=== PATIENT | male | born 1970 | race Caucasian/White ===

== ENCOUNTER 2024-06-17 12:35 | Outpatient (OUT) | payer OTHER, SELFPAY ==
--- NOTE | 2024-06-17 12:47 | US_ITS ---
The [address] [address] Patient Name: VIOLETTA MURRAY MRN: [id number] date: 1970 Sex: M Assigned Patient Location: US Current Patient Location: US Accession/Order Number: [id number] Exam Date: 06/17/2024 13:09 Report Date: 06/17/2024 15:23 At the request of: ISIDRO REINA Procedure: US venous doppler LE LT CLINICAL DATA: Leg swelling. PROCEDURE: Left lower extremity venous duplex ultrasound. TECHNIQUE: Tejada-scale, color flow, and waveform spectral analysis was performed of the left lower extremity. FINDINGS: The left common femoral, profunda femoral, femoral, and popliteal veins were compressible. The saphenous vein was compressible. No venous thrombosis was seen. The veins fill with color Doppler. Augmentation was normal. There was limited visualization of the tibial veins secondary to bandage. US/US venous doppler LE LT IMPRESSION: 1. No acute lower extremity deep venous thrombosis. 2. No superficial venous thrombosis. Electronically authenticated by: Giuliano PEACOCK Date: 06/17/2024 15:23
== END 2024-06-17 12:36 | disposition home or self-care (01) ==
LOC: US 12:41
PROVIDERS: PCP Internal Medicine; Visit Provider Internal Medicine
DX: I87.2 Venous insufficiency (chronic) (peripheral) (principal); M79.89 Other specified soft tissue disorders
CPT/HCPCS: 93971

== ENCOUNTER 2024-06-19 15:00 | Outpatient (OUT) | payer OTHER, SELFPAY | END 2024-06-19 15:01 | disposition home or self-care (01) | LOC: WC 15:00 | PROVIDERS: PCP Internal Medicine; Visit Provider Physician Assistant | DX: I87.332 Chronic venous hypertension (idiopathic) with ulcer and inflammation of left lower extremity (principal); L97.821 Non-pressure chronic ulcer of other part of left lower leg limited to breakdown of skin | CPT/HCPCS: G0463 ==

== ENCOUNTER 2024-07-10 11:52 | Outpatient (OUT) | payer OTHER, SELFPAY | END 2024-07-10 11:53 | disposition home or self-care (01) | LOC: WC 11:52 | PROVIDERS: PCP Internal Medicine; Visit Provider Physician Assistant | DX: I87.332 Chronic venous hypertension (idiopathic) with ulcer and inflammation of left lower extremity (principal); L97.821 Non-pressure chronic ulcer of other part of left lower leg limited to breakdown of skin; R60.1 Generalized edema | CPT/HCPCS: G0463 ==

== ENCOUNTER 2024-07-12 11:40 | Outpatient (OUT) | payer OTHER, SELFPAY | END 2024-07-12 11:41 | disposition home or self-care (01) | LOC: WC 11:40 | PROVIDERS: PCP Internal Medicine; Visit Provider Podiatrist Foot & Ankle Surgery | DX: I87.332 Chronic venous hypertension (idiopathic) with ulcer and inflammation of left lower extremity (principal); L97.821 Non-pressure chronic ulcer of other part of left lower leg limited to breakdown of skin | CPT/HCPCS: 29580 ==

== ENCOUNTER 2024-07-16 10:28 | Outpatient (OUT) | payer OTHER, SELFPAY | END 2024-07-16 10:29 | disposition home or self-care (01) | LOC: WC 10:28 | PROVIDERS: PCP Internal Medicine; Visit Provider Physician Assistant | DX: I87.332 Chronic venous hypertension (idiopathic) with ulcer and inflammation of left lower extremity (principal); L97.821 Non-pressure chronic ulcer of other part of left lower leg limited to breakdown of skin | CPT/HCPCS: 29580 ==

== ENCOUNTER 2024-07-19 08:48 | Outpatient (OUT) | payer OTHER, SELFPAY ==
--- OUTSIDE RECORDS SUMMARY | 2024-07-19 08:53 | XMS_ITS | CCD ---
Author Organization [facility] Care Team Providers Care Slab Conditioner Supervisor Name Role Phone ANSELMO, DR FELIX Primary Care Unavailable ANSELMO, DR FELIX Admitting Unavailable ANSELMO, DR FELIX Attending Unavailable ANSELMO, DR FELIX Consulting Unavailable ANSELMO, DR FELIX Admitting Unavailable ANSELMO, DR FELIX Attending Unavailable ANSELMO, DR FELIX Consulting Unavailable ANSELMO, DR FELIX Primary Care Unavailable Anselmo, Deo Unavailable Allergies Allergy Classification Reported Allergen(s) Allergy Type Date of Onset Reaction(s) Facility Cranberry preparation (1 source) Cranberry preparation Drug Allergy 4 Unknown Reaction [facility] Shellfish (1 source) Shellfish Food Allergy 4 Unknown Reaction [facility] (1 source) Shellfish Drug allergy (disorder) 7 [facility] (2 sources) patient allergy list reviewed by nurse or physicia Propensity to adverse reactions 7 Comment:Done [facility] Other (1 source) Cranberry preparation Drug Allergy 4 Unknown Reaction [facility] (1 source) Shellfish Allergy to substance 4 Unknown Reaction [facility] Medications Current Medications Medication Drug Class(es) Dates Sig (Normalized) Sig (Original) ARIPiprazole 10 mg oral tablet (11 sources) Atypical Antipsychotic Start: 12-11-2023 take 1 tablet by mouth once daily Aripiprazole 10 mg tablet Active 0 .ROUTE .COMPLEX December 11, 2023 4:58pm take 1 tablet by mouth once daily Start: 03-25-2019 End: 12-11-2023 take 1 tablet by mouth at bedtime Aripiprazole 5 mg tablet Discontinued 5 MG PO Bedtime March 24, 2019 11:00pm December 11, 2023 4:58pm ARIPiprazole 10 MG take 1 tablet by mouth once daily Orally Once a day Active lisinopril 20 mg oral tablet (12 sources) Angiotensin Converting Enzyme Inhibitor Start: 04-24-2024 take 1 tablet by mouth once daily Lisinopril 20 mg tablet Active 0 .ROUTE .COMPLEX April 24, 2024 7:36am TAKE 1 TABLET BY MOUTH ONCE A DAY Start: 02-14-2024 End: 04-24-2024 take 1 tablet by mouth once daily Lisinopril 20 mg tablet Discontinued 20 MG PO Daily February 13, 2024 11:00pm April 24, 2024 7:36am Start: 06-25-2017 End: 03-25-2019 take 1 tablet by mouth once daily Lisinopril 10 mg tablet Discontinued 10 MG PO Daily June 25, 2017 12:00am March 25, 2019 12:51pm take 1 tablet by jeferson th every twenty-four hours Lisinopril 20 MG 1 tablet Orally Once a day Active pantoprazole 40 mg delayed release oral tablet (10 sources) Proton Pump Inhibitor Start: 02-29-2024 take 1 tablet by mouth once daily Pantoprazole 40 mg tablet,delayed release (DR/EC) Active 0 .ROUTE .COMPLEX February 29, 2024 10:37am TAKE 1 TABLET BY MOUTH ONCE DAILY Start: 06-19-2017 End: 02-29-2024 take 1 tablet by mouth once daily Pantoprazole 40 tablet,delayed release (DR/EC) Discontinued 40 MG PO Daily June 19, 2017 12:00am February 29, 2024 10:37am sertraline 100 mg oral tablet (14 sources) Serotonin Reuptake Inhibitor Start: 02-29-2024 Sertraline 100 mg tablet Active 0 .ROUTE .COMPLEX February 29, 2024 10:37am TAKE 1 AND 1/2 TABLETS BY MOUTH AT BEDTIME Start: 08-29-2022 Sertraline HCl 100 MG 1 abd 1/2 tablets Orally at bedtime Aug, Active Start: 03-25-2019 End: 03-25-2019 Sertraline 25 mg tablet Disc ontinued 150 MG PO Bedtime March 25, 2019 7:38am March 25, 2019 12:50pm Start: 03-25-2019 End: 03-25-2019 take 150 mg by mouth at bedtime Sertraline Discontinue d 150 MG PO Bedtime March 25, 2019 8:38am March 25, 2019 1:50pm Start: 03-25-2019 End: 02-29-2024 Sertraline 100 mg tablet Discontinued 150 MG PO Bedtime March 24, 2019 11:00pm February 29, 2024 10:37am Start: 03-25-2019 take 150 mg by mouth at bedtim e Sertraline Active 150 MG PO Bedtime March 25, 2019 12:00am Start: 06-27-2017 End: 03-25-2019 take 1 tablet by mouth at bedtime Sertraline 25 mg Tablet Discontinued 25 MG PO Bedtime June 27, 2017 12:00am March 25, 2019 7:38am take 1 tablet by jeferson th at bedtime Sertraline HCl 100 MG 1 1/2 tablets Orally at bedtime Active torsemide 10 mg oral tablet (3 sources) Loop Diuretic Start: 02-14-2024 End: 06-17-2024 take 1-2 tablets by mouth once daily Torsemide 10 mg tablet Active 0 PO Daily 60 June 17, 2024 9:56am 1-2 tablets orally daily; Vitamin B Complex (1 source) Start: 03-27-2019 take 1 tablet by mouth once daily Vitamin B Complex Active 1 TAB PO Daily March 27, 2019 12:00am Vitamin B Complex tablet (1 source) Start: 03-27-2019 take 1 tablet by mouth once daily Vitamin B Complex tablet Active 1 TAB PO Daily March 26, 2019 11:00pm Completed/Discontinued Medications Medication Drug Class(es) Dates Sig (Normalized) Sig (Original) ALPRAZolam 0.5 mg oral tablet (2 sources) Benzodiazepine Start: 7 End: 9 take 1 tablet by mouth three times daily as needed for anxiety Alprazolam (Xanax) 0.5 mg tablet Discontinued 0.5 MG PO Three times daily as needed for anxiety June 25, 2017 11:04am March 25, 2019 7:36am amLODIPine 2.5 mg oral tablet (2 sources) Dihydropyridine Calcium Channel Sari Start: 9 End: 4 take 1 tablet by mouth once daily Amlodipine 2.5 mg tablet Discontinued 2.5 MG PO Daily March 26, 2019 11:00pm February 14, 2024 8:17am benazepril hydrochloride 20 mg oral tablet (2 sources) Angiotensin Converting Enzyme Inhibitor Start: 7 End: 7 Benazepril 20 tablet Discontinued TABLET June 19, 2017 12:00am June 25, 2017 11:00am chlordiazePOXIDE hydrochloride 10 mg oral capsule (2 sources) Benzodiazepine Start: 7 End: 9 take 1 capsule by mouth three times daily Chlordiazepoxide Hcl 10 mg Capsule Discontinued 10 MG PO Three times daily June 25, 2017 12:00am March 25, 2019 7:37am Tapered down slowly while patient on 1 S. and eventually discontinue 24 hr metoprolol succinate 25 mg extended release oral tablet (2 sources) beta-Adrenergic Sari Start: 7 End: 9 Metoprolol Succinate 25 mg Tablet Extended Release 24 Hr Discontinued 50 MG PO Daily June 25, 2017 12:00am March 25, 2019 7:38am Start: 06-25-2017 End: 03-25-2019 take 50 mg by mouth once daily Metoprolol Succinate Di scontinued 50 MG PO Daily June 25, 2017 1:00am March 25, 2019 8:38am Problems Active Problems Problem Classification Problem Date Documented Da te Episodic/Chronic Alcohol-related disorders (20 sources) Alcohol dependence; Translations: [Alcohol dependence, uncomplicated] Onset: 5 Resolved: 1 Chronic Coagulation and hemorrhagic disorders (4 sources) Thrombocytopenic disorder; Translations: [Thrombocytopenia, unspecified] 08-23-2023 Chronic Deficiency and other anemia (5 sources) Anemia due to chronic blood loss; Translations: [Iron deficiency anemia secondary to blood loss (chronic)] Chronic Deficiency and other anemia (5 sources) Anemia, unspecified; Translations: [ANEMIA UNSPECIFIED] Onset: 2 Episodic Deficiency and other anemia (4 sources) Anemia; Translations: [Anemia, unspecified] Episodic Diabetes mellitus without complication (3 sources) Diabetes mellitus without complication; Translations: [Type 2 diabetes mellitus without complications] Chronic Diabetes mellitus without complication (11 sources) Hyperglycemia; Translations: [Hyperglycemia, unspecified] Episodic Disorders of lipid metabolism (3 sources) Hypercholesterolemia; Translations: [Pure hypercholesterolemia, unspecified] 02-11-2024 Chronic Epilepsy; convulsions (3 sources) Generalized convulsive epilepsy; 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] Onset: 5 02-11-2024 Chronic Epilepsy; convulsions (1 source) Epilepsy; convulsions; 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] Onset: 5 Esophageal disorders (5 sources) Gastro-esophageal reflux disease with esophagitis; Translations: [Gastroesophageal reflux disease with esophagitis without hemorrhage] 02-11-2024 Chronic Essential hypertension (17 sources) Essential hypertension; Translations: [Essential (primary) hypertension] Chronic Fluid and electrolyte disorders (5 sources) Hyponatremia; Translations: [Hypo-osmolality and hyponatremia] Episodic Miscellaneous mental health disorders (2 sources) Somatoform disorder; 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] Onset: 6 Chronic Mood disorders (19 sources) Recurrent major depression in full remission; Translations: [Major depressive disorder, recurrent, in full remission] Onset: 7 Chronic Mood disorders (1 source) Mood disorders; Translations: [Major depressive disorder, recurrent episode, moderate] Onset: 7 Other connective tissue disease (1 source) Swelling of left lower limb; Translations: [Other specified soft tissue disorders] 06-17-2024 Episodic Other diseases of veins and lymphatics (6 sources) Postthrombotic syndrome; 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] Onset: 7 02-14-2024 Chronic Other diseases of veins and lymphatics (1 source) Lymphedema due to venous disease; Translations: [Lymphedema, not elsewhere classified] 06-14-2024 Chronic Other diseases of veins and lymphatics (1 source) Lymphedema, not elsewhere classified; Translations: [Other lymphedema] 06-17-2024 Chronic Other diseases of veins and lymphatics (1 source) Postthrombotic syndrome without complications of unspecified extremity; Translations: [Postphlebetic syndrome without complications] 06-17-2024 Chronic Other diseases of veins and lymphatics (11 sources) Peripheral venous insufficiency; Translations: [Venous insufficiency (chronic) (peripheral)] Onset: 5 Episodic Other diseases of veins and lymphatics (4 sources) Venous insufficiency (chronic) (peripheral); Translations: [Venous (peripheral) insufficiency, unspecified] Episodic Other diseases of veins and lymphatics (2 sources) Venous insufficiency of leg; Translations: [Venous insufficiency (chronic) (peripheral)] 02-14-2024 Episodic Other gastrointestinal disorders (2 sources) Irritable bowel syndrome; Translations: [Irritable bowel syndrome without diarrhea] Chronic Other nutritional; endocrine; and metabolic disorders (7 sources) Obese class I; Translations: [Obesity, unspecified] Chronic Other nutritional; endocrine; and metabolic disorders (1 source) Obesity, unspecified Chronic Other nutritional; endocrine; and metabolic disorders (2 sources) Simple obesity ; Translations: [Other obesity due to excess calories] Chronic Other nutritional; endocrine; and metabolic disorders (2 sources) Obesity; Translations: [Obesity, unspecified] Chronic Other nutritional; endocrine; and metabolic disorders (2 sources) Hypomagnesemia; Translations: [Hypomagnesemia] Onset: 9 Chronic Other nutritional; endocrine; and metabolic disorders (1 source) Overweight Episodic Other screening for suspected conditions (not mental disorders or infectious disease) (8 sources) Prostate specific antigen measurement; Translations: [Encounter for screening for malignant neoplasm of prostate] Episodic Phlebitis; thrombophlebitis and thromboembolism (16 sources) H/O: Deep vein thrombosis; Translations: [Personal history of other venous thrombosis and embolism] Onset: 5 Episodic Residual codes; unclassified (3 sources) Personal history of other specified conditions; Translations: [History of seizure due to alcohol withdrawal] 02-11-2024 Episodic Spondylosis; intervertebral disc disorders; other back problems (6 sources) Cervical spondylosis without myelopathy; Translations: [Other spondylosis with radiculopathy, cervical region] Onset: 7 Chronic Suicide and intentional self-inflicted injury (2 sources) Suicidal thoughts; Translations: [Suicidal ideations] 02-11-2024 Episodic Past or Other Problems Problem Classification Problem Date Documented Da te Episodic/Chronic Acute bronchitis (2 sources) Acute bronchitis; Translations: [Acute bronchitis, unspecified] Onset: 12-17-2015 Episodic Bacterial infection; unspecified site (2 sources) Bacterial infectious disease; Translations: [Bacterial infection, unspecified, in conditions classified elsewhere and of unspecified site] Onset: 12-17-2015 Episodic Epilepsy; convulsions (2 sources) Seizure; Translations: [Other convulsions] Onset: 10-11-2018 Episodic Esophageal disorders (10 sources) Esophageal disorders; Translations: [Gastroesophageal reflux disease with esophagitis without hemorrhage] Gastritis and duodenitis (2 sources) Acute gastritis; Translations: [Acute gastritis without mention of hemorrhage] Onset: 09-02-2016 Episodic Intestinal infection (2 sources) Viral enteritis; Translations: [Intestinal infection due to other organism, NEC] Onset: 02-26-2016 Episodic Intracranial injury (2 sources) Cortex contusion without open intracranial wound AND with concussion; Translations: [Cortex (cerebral) contusion without mention of open intracranial wound, unspecified concussion] Onset: 03-31-2015 Episodic Malaise and fatigue (2 sources) Fatigue; Translations: [Other fatigue] Resolved: 04-05-2021 Episodic Other connective tissue disease (2 sources) Spasm; Translations: [Spasm of muscle] Onset: 11-09-2016 Episodic Other nutritional; endocrine; and metabolic disorders (2 sources) Overweight; Translations: [Overweight] Onset: 12-07-2017 Episodic Other nutritional; endocrine; and metabolic disorders (2 sources) Body mass index 25-29 - overweight; Translations: [Body mass index 26.0-26.9, adult] Onset: 12-07-2017 Episodic Other skin disorders (2 sources) Sebaceous cyst; Translations: [Sebaceous cyst] Onset: 02-25-2015 Episodic Other upper respiratory infections (2 sources) Acute sinusitis; Translations: [Acute sinusitis, unspecified] Onset: 08-27-2014 Episodic Spondylosis; intervertebral disc disorders; other back problems (2 sources) Neck pain; Translations: [Cervicalgia] Onset: 02-26-2016 Episodic Results Test Name Value Interpretation Reference Range Facil ity CBC AUTO DIFFon 03-01-2022 BASO # 0.1 103/ul Normal 0.0-0.1 [facility] Comment on above: Performed By: #### C BC #### [facility] [address] [address] [address] Aidee Go Basophils/100 WBC (Bld) 0.9 % Normal 0.2-2.0 [facility] Comment on above: Performed By: #### C BC #### [facility] [address] [address] [address] Aidee Go EO # 0.1 103/ul Normal 0.0-0.7 [facility] Comment on above: Performed By: #### C BC #### [facility] [address] [place] [address] Dr. Aidee Go Eosinophils/100 WBC (Bld) 1.8 % Normal 0.9-7.0 [facility] Comment on above: Performed By: #### C BC #### [facility] [address] [place] [address] Dr. Aidee Go Erythrocyte distribution width (RBC) [Ratio] 15.0 % Normal 11.0-15.0 [facility] Comment on above: Performed By: #### C BC #### [facility] [address] [place] [address] Dr. Aidee Go Hematocrit (Bld) [Volume fraction] 37.9 % Critically low 42.0-54.0 [facility] Comment on above: Performed By: #### C BC #### [facility] [address] [place] [address] Dr. Aidee Go Hemoglobin (Bld) [Mass/Vol] 12.5 g/dL Critically low 14.0-18.0 [facility] Comment on above: Performed By: #### C BC #### [facility] [address] [place] [address] Dr. Aidee Go IG # 0.02 10e3/ul Normal 0.00-0.03 [facility] Comment on above: Performed By: #### C BC #### [facility] [address] [place] [address] Dr. Aidee Go IG % 0.4 % Normal 0.0-0.5 [facility] Comment on above: Performed By: #### C BC #### [facility] [address] [place] [address] Dr. Aidee Go LYMPH # 1.8 103/ul Normal 1.2-3.8 [facility] Comment on above: Performed By: #### C BC #### [facility] [address] [place] [address] Dr. Aidee Go Lymphocytes/100 WBC (Bld) 31.7 % Normal 20.5-60.0 [facility] Comment on above: Performed By: #### C BC #### [facility] [address] [place] [address] Dr. Aidee Go MANUAL DIFF REQ NO Normal [facility] Comment on above: Performed By: #### C BC #### [facility] [address] [place] [address] Dr. Aidee Go MCH (RBC) [Entitic mass] 29.1 pg Normal 25.9-34.0 [facility] Comment on above: Performed By: #### C BC #### [facility] [address] [place] [address] Dr. Aidee Go MCHC (RBC) [Mass/Vol] 33.0 g/dL Normal 29.9-35.2 [facility] Comment on above: Performed By: #### C BC #### [facility] [address] [place] [address] Dr. Aidee Go MCV (RBC) [Entitic vol] 88.1 fL Normal 80.0-94.0 [facility] Comment on above: Performed By: #### C BC #### [facility] [address] [place] [address] Dr. Aidee Go MONO # 0.6 103/ul Normal 0.3-0.8 [facility] Comment on above: Performed By: #### C BC #### [facility] [address] [place] [address] Dr. Aidee Go Monocytes/100 WBC (Bld) 10.5 % Normal 1.7-12.0 [facility] Comment on above: Performed By: #### C BC #### [facility] [address] [place] [address] Dr. Aidee Go NEUT # 3.1 103/ul Normal 1.4-6.5 [facility] Comment on above: Performed By: #### C BC #### [facility] [address] [place] [address] Dr. Aidee Go Neutrophils/100 WBC (Bld) 54.7 % Normal 43.0-75.0 [facility] Comment on above: Performed By: #### C BC #### [facility] [address] [address] [address] Aidee Go Platelet mean volume (Bld) [Entitic vol] 10.5 fL Normal 9.5-13.5 [facility] Comment on above: Performed By: #### C BC #### [facility] [address] [address] [address] Aidee Go PLT 144 103/ul Critically low 150-450 [facility] Comment on above: Performed By: #### C BC #### [facility] [address] [address] [address] Aidee Go RBC 4.30 106/ul Critically low 4.70-6.10 [facility] Comment on above: Performed By: #### C BC #### [facility] [address] [place] [address] Dr. Aidee Go WBC 5.6 103/ul Normal 4.0-11.0 [facility] Comment on above: Performed By: #### C BC #### [facility] [address] [place] [address] Dr. Aidee Go FERRITINon 03-01-2022 Ferritin [Mass/Vol] 25.0 ng/mL Critically low 26.0-388.0 [facility] Comment on above: Performed By: #### B 12FOL, FETIBC, FERR #### [facility] [address] [place] [address] Dr. Aidee Go IRON AND TIBCon 03-01-2022 % SATURATION 12.2 % Normal [facility] Comment on above: Performed By: #### B 12FOL, FETIBC, FERR #### [facility] [address] [address] [address] Aidee Go Iron [Mass/Vol] 48.0 ug/dL Critically low 65.0-175.0 [facility] Comment on above: Performed By: #### B 12FOL, FETIBC, FERR #### [facility] [address] [address] [address] Aidee Go TIBC DIRECT 395.0 ug/dL Normal 250.0-450.0 [facility] Comment on above: Performed By: #### B 12FOL, FETIBC, FERR #### [facility] [address] [place] [address] Dr. Aidee Go VIT B12 AND FOLATEon 022 Cobalamin (Vitamin B12) [Mass/Vol] 606.0 pg/mL Normal 193.0-986.0 [facility] Comment on above: Performed By: #### B 12FOL, FETIBC, FERR #### [facility] [address] [place] [address] Dr. Aidee Go FOLATE 18.40 ng/mL Normal 8.60-58.90 [facility] Comment on above: Performed By: #### B 12FOL, FETIBC, FERR #### [facility] [address] [place] [address] Dr. Aidee Go CBC AUTO DIFFon 01-06-2022 BASO # 0.1 103/ul Normal 0.0-0.1 [facility] Comment on above: Performed By: #### C BC #### [facility] [address] [place] [address] Dr. Aidee Go Basophils/100 WBC (Bld) 1.0 % Normal 0.2-2.0 [facility] Comment on above: Performed By: #### C BC #### [facility] [address] [place] [address] Dr. Aidee Go EO # 0.2 103/ul Normal 0.0-0.7 [facility] Comment on above: Performed By: #### C BC #### [facility] [address] [place] [address] Dr. Aidee Go Eosinophils/100 WBC (Bld) 4.5 % Normal 0.9-7.0 [facility] Comment on above: Performed By: #### C BC #### [facility] [address] [place] [address] Dr. Aidee Go Erythrocyte distribution width (RBC) [Ratio] 15.0 % Normal 11.0-15.0 [facility] Comment on above: Performed By: #### C BC #### [facility] [address] [place] [address] Dr. Aidee Go Hematocrit (Bld) [Volume fraction] 38.6 % Critically low 42.0-54.0 [facility] Comment on above: Performed By: #### C BC #### [facility] [address] [place] [address] Dr. Aidee Go Hemoglobin (Bld) [Mass/Vol] 12.2 g/dL Critically low 14.0-18.0 [facility] Comment on above: Performed By: #### C BC #### [facility] [address] [place] [address] Dr. Aidee Go IG # 0.01 10e3/ul Normal 0.00-0.03 [facility] Comment on above: Performed By: #### C BC #### [facility] [address] [place] [address] Dr. Aidee Go IG % 0.2 % Normal 0.0-0.5 [facility] Comment on above: Performed By: #### C BC #### [facility] [address] [place] [address] Dr. Aidee Go LYMPH # 1.4 103/ul Normal 1.2-3.8 [facility] Comment on above: Performed By: #### C BC #### [facility] [address] [place] [address] Dr. Aidee Go Lymphocytes/100 WBC (Bld) 29.2 % Normal 20.5-60.0 [facility] Comment on above: Performed By: #### C BC #### [facility] [address] [place] [address] Dr. Aidee Go MANUAL DIFF REQ NO Normal [facility] Comment on above: Performed By: #### C BC #### [facility] [address] [place] [address] Dr. Aidee Go MCH (RBC) [Entitic mass] 28.2 pg Normal 25.9-34.0 [facility] Comment on above: Performed By: #### C BC #### [facility] [address] [place] [address] Dr. Aidee Go MCHC (RBC) [Mass/Vol] 31.6 g/dL Normal 29.9-35.2 [facility] Comment on above: Performed By: #### C BC #### [facility] [address] [place] [address] Dr. Aidee Go MCV (RBC) [Entitic vol] 89.1 fL Normal 80.0-94.0 [facility] Comment on above: Performed By: #### C BC #### [facility] [address] [place] [address] Dr. Aidee Go MONO # 0.5 103/ul Normal 0.3-0.8 [facility] Comment on above: Performed By: #### C BC #### [facility] [address] [place] [address] Dr. Aidee Go Monocytes/100 WBC (Bld) 10.1 % Normal 1.7-12.0 [facility] Comment on above: Performed By: #### C BC #### [facility] [address] [place] [address] Dr. Aidee Go NEUT # 2.7 103/ul Normal 1.4-6.5 [facility] Comment on above: Performed By: #### C BC #### [facility] [address] [place] [address] Dr. Aidee Go Neutrophils/100 WBC (Bld) 55.0 % Normal 43.0-75.0 [facility] Comment on above: Performed By: #### C BC #### [facility] [address] [place] [address] Dr. Aidee Go Platelet mean volume (Bld) [Entitic vol] 10.3 fL Normal 9.5-13.5 [facility] Comment on above: Performed By: #### C BC #### [facility] [address] [place] [address] Dr. Aidee Go PLT 145 103/ul Critically low 150-450 [facility] Comment on above: Performed By: #### C BC #### [facility] [address] [place] [address] Dr. Aidee Go RBC 4.33 106/ul Critically low 4.70-6.10 [facility] Comment on above: Performed By: #### C BC #### [facility] [address] [place] [address] Dr. Aidee Go WBC 4.9 103/ul Normal 4.0-11.0 [facility] Comment on above: Performed By: #### C BC #### [facility] [address] [place] [address] Dr. Aidee Go PROF 14(COMP METB)on 022 Albumin [Mass/Vol] 3.8 g/dL Normal 3.4-5.0 [facility] [facility] Comment on above: Performed By: #### C MP #### [facility] [address] [place] [address] Dr. Aidee Go Albumin/Globulin [Mass ratio] 1.0 {ratio} Normal [facility] Comment on above: Performed By: #### C MP #### [facility] [address] [place] [address] Dr. Aidee Go ALP [Catalytic activity/Vol] 66 U/L Normal 46-116 [facility] Comment on above: Performed By: #### C MP #### [facility] [address] [place] [address] Dr. Aidee Go ALT [Catalytic activity/Vol] 58 U/L Normal 16-63 [facility] Comment on above: Performed By: #### C MP #### [facility] [address] [place] [address] Dr. Aidee Go Anion gap [Moles/Vol] 15.6 mmol/L Normal [facility] Comment on above: Performed By: #### C MP #### [facility] [address] [place] [address] Dr. Aidee Go AST [Catalytic activity/Vol] 44 U/L Critically high 15-37 [facility] Comment on above: Performed By: #### C MP #### [facility] [address] [place] [address] Dr. Aidee Go Bilirubin [Mass/Vol] 0.2 mg/dL Normal 0.2-1.0 [facility] Comment on above: Performed By: #### C MP #### [facility] [address] [place] [address] Dr. Aidee Go Calcium [Mass/Vol] 9.1 mg/dL Normal 8.5-10.1 [facility] Comment on above: Performed By: #### C MP #### [facility] [address] [place] [address] Dr. Aidee Go Chloride [Moles/Vol] 101 mmol/L Normal 98-107 [facility] Comment on above: Performed By: #### C MP #### [facility] [address] [place] [address] Dr. Aidee Go CO2 [Moles/Vol] 24.8 mmol/L Normal 21.0-32.0 [facility] Comment on above: Performed By: #### C MP #### [facility] [address] [place] [address] Dr. Aidee Go Creatinine [Mass/Vol] 0.77 mg/dL Normal 0.70-1.30 [facility] Comment on above: Performed By: #### C MP #### [facility] [address] [place] [address] Dr. Aidee Go EGFR-AF RWANDAN >60 Normal >=60 [facility] Comment on above: Performed By: #### C MP #### [facility] [address] [place] [address] Dr. Aidee Go EGFR-NON AF RWANDAN >60 Normal >=60 [facility] Comment on above: Performed By: #### C MP #### [facility] [address] [place] [address] Dr. Aidee Go Globulin (S) [Mass/Vol] 3.8 g/dL Normal [facility] Comment on above: Performed By: #### C MP #### [facility] [address] [place] [address] Dr. Aidee Go Glucose [Mass/Vol] 103 mg/dL Normal 74-106 [facility] Comment on above: Performed By: #### C MP #### [facility] [address] [address] [address] Aidee Go Potassium [Moles/Vol] 4.4 mmol/L Normal 3.5-5.1 [facility] Comment on above: Performed By: #### C MP #### [facility] [address] [address] [address] Aidee Go Protein [Mass/Vol] 7.6 g/dL Normal 6.4-8.2 [facility] Comment on above: Performed By: #### C MP #### [facility] [address] [address] [address] Aidee Go Sodium [Moles/Vol] 137 mmol/L Normal 136-145 [facility] Comment on above: Performed By: #### C MP #### [facility] [address] [address] [address] Aidee Go Urea nitrogen [Mass/Vol] 9.0 mg/dL Normal 7.0-18.0 [facility] Comment on above: Performed By: #### C MP #### [facility] [address] [address] [address] Aidee Go Urea nitrogen/Creatinine [Mass ratio] 11.7 mg/mg Normal [facility] Comment on above: Performed By: #### C MP #### [facility] [address] [address] [address] Aidee Go ED Clinical Summaryon 2018 ED Clinical Summary [place] [id number] ED Clinical Summary Person Information Name: VIOLETTA MURRAY [place] Age: 48 Years : 1970 12:00 AM Sex: Male Language: PCP: NONE, XXXX Marital Status: Single Phone: [phone] Visit Id: Visit Reason: back pain Speciality: Acuity: Enc Type: Emergency Med Service: Emergency Arrival: 02/07/2019 3:38 AM Discharge: LOS: 000 00:07 Checkin: 02/07/2019 3:38 AM Checkout: Dispo Type: EVENTS: Event Name Event Status Request Date/Time Start Date/Time Complete Date/Time Arrive Complete 02/07/2019 3:38 AM 02/07/2019 3:38 AM 02/07/2019 3:38 AM Document Home Meds Request 02/07/2019 3:38 AM Triage Request 02/07/2019 3:[address] Exam Complete 02/07/2019 3:40 AM 02/07/2019 3:40 AM 02/07/2019 3:40 AM Registration Start 02/07/2019 3:40 AM 02/07/2019 3:41 AM Bed Assign Complete 02/07/2019 3:41 AM 02/07/2019 3:41 AM 02/07/2019 3:41 AM RN Exam Request 02/07/2019 3:41 AM Meds Admin Request 02/07/2019 3:44 AM Discharge Request 02/07/2019 3:45 AM ADDRESS: [address] [place], [place] [id number] [facility] DOC NOTES: MEDICAL INFORMATION: Prescriptions Given: Prescription Display orphenadrine (orphenadrine 100 mg ER Tab) 100 mg = 1 tab(s), Oral, BID, X 7 day(s), # 14 tab(s), Refills(s) 0 PATIENT EDUCATION INFORMATION: Instructions: Cryotherapy, Arzs-co-Dtrl; Back Pain, Adult, Tmge-hx-Egng Follow up: With: Address: When: Zain Cottrell [address] [place] [address] [facility] (0) Within 1 to 2 days Comments: Return to ED if symptoms worsen DIAGNOSIS: 1:Chronic back pain Normal [facility] ED Patient Education Noteon 02-07-2019 ED Patient Education Note Family Medicine Cryotherapy Cryotherapy is when you put ice on your injury. Ice helps lessen pain and puffiness (swelling) after an injury. Ice works the best when you start using it in the first 24 to 48 hours after an injury. HOME CARE ? Put a dry or damp towel between the ice pack and your skin. ? You may press gently on the ice pack. ? Leave the ice on for no more than 10 to 20 minutes at a time. ? Check your skin after 5 minutes to make sure your skin is okay. ? Rest at least 20 minutes between ice pack uses. ? Stop using ice when your skin loses feeling (numbness). ? Do not use ice on someone who cannot tell you when it hurts. This includes small children and people with memory problems (dementia). GET HELP RIGHT AWAY IF: ? You have white spots on your skin. ? Your skin turns blue or pale. ? Your skin feels waxy or hard. ? Your puffiness gets worse. MAKE SURE YOU: ? Understand these instructions. ? Will watch your condition. ? Will get help right away if you are not doing well or get worse. Document Released: 01/09/2009 Document Revised: 10/15/2012 Document Reviewed: 03/15/2012 ExitCare? Patient Information ?2015 [employer]. This information is not intended to replace advice given to you by your health care provider. Make sure you discuss any questions you have with your health care provider. Back Pain, Adult Back pain is very common. The pain often gets better over time. The cause of back pain is usually not dangerous. Most people can learn to manage their back pain on their own. HOME CARE ? Stay active. Start with short walks on flat ground if you can. Try to walk farther each day. ? Do not sit, drive, or line repairer tower one place for more than 30 minutes. Do not stay in bed. ? Do not avoid exercise or work. Activity can help your back heal faster. ? Be careful when you bend or lift an object. Bend at your knees, keep the object close to you, and do not twist. ? Sleep on a firm mattress. Lie on your side, and bend your knees. If you lie on your back, put a pillow under your knees. ? Only take medicines as told by your doctor. ? Put ice on the injured area. ? Put ice in a plastic bag. ? Place a towel between your skin and the bag. ? Leave the ice on for 15-20 minutes, 03-04 times a day for the first 2 to 3 days. After that, you can switch between ice and heat packs. ? Ask your doctor about back exercises or massage. ? Avoid feeling anxious or stressed. Find good ways to deal with stress, such as exercise. GET HELP RIGHT AWAY IF: ? Your pain does not go away with rest or medicine. ? Your pain does not go away in 1 week. ? You have new problems. ? You do not feel well. ? The pain spreads into your legs. ? You cannot control when you poop (bowel movement) or pee (urinate). ? Your arms or legs feel weak or lose feeling (numbness). ? You feel sick to your stomach (nauseous) or throw up (vomit). ? You have belly (abdominal) pain. ? You feel like you may pass out (faint). MAKE SURE YOU: ? Understand these instructions. ? Will watch your condition. ? Will get help right away if you are not doing well or get worse. Document Released: 01/09/2009 Document Revised: 10/15/2012 Document Reviewed: 11/25/2014 ExitCare? Patient Information ?2015 [employer]. This information is not intended to replace advice given to you by your health care provider. Make sure you discuss any questions you have with your health care provider. Normal [facility] ED Patient Summaryon 019 ED Patient Summary [address] [address] Patient Discharge Instructions Person Information Name: VIOLETTA MURRAY Age: 48 Years Arrival Date: 02/07/2019 3:38 AM Discharge Diagnosis: 1:Chronic back pain Primary Care Physician: LUC, XXXX Provider Information Primary Provider: Arlette Loomis DO [facility] Specialist:Luc The exam and treatment you received in the Emergency Department were for an urgent problem and are not intended as complete care. It is important that you follow up with a doctor, nurse practitioner, or physician?s certified physician's assistant for ongoing care. If your symptoms become worse or you do not improve as expected and you are unable to reach your usual health care provider, you should return to the Emergency Department. We are available 24 hours a day. VIOLETTA MURRAY has been given the following list of patient education materials, prescriptions and follow-up instructions: Follow-up Instructions: With: Address: When: Zain Simba [address] [place] [address] Business (1) Within 1 to 2 days Comments: Return to ED if symptoms worsen In the event that this physician does not participate in your insurance network, please consult with your insurance company to find a nearby participating provider. Patient Education Materials: Cryotherapy, Iybi-eb-Nxfs; Back Pain, Adult, Jskq-zg-Wppd A MESSAGE TO ALL PATIENTS REGARDING OPIOIDS PRESCRIPTION OPIOIDS: WHAT YOU NEED TO KNOW Prescription opioids can be used to help relieve colzfxwc-ei-gifpoz pain and are often prescribed following a surgery or injury, or for certain health conditions. These medications can be an important part of the treatment but also come with serious risks. It is important to work with your healthcare provider to make sure you are getting the safest, most effective care. WHAT ARE THE RISKS AND SIDE EFFECTS OF OPIOID USE? Prescription opioids carry serious risks of addiction and overdose, especially with prolonged use. An opioid overdose, often marked by slowed breathing, can cause sudden . The use of prescription opioids can have a number of side effects as well, even when taken as directed: ? Tolerance?meaning you might need to take more of the medication for the same pain relief ? Physical dependence?meaning you have symptoms of withdrawal when a medication is stopped ? Increased sensitivity to pain ? Constipation ? Nausea, vomiting, and dry mouth ? Sleepiness and dizziness ? Confusion ? Depression ? Low levels of testosterone that can result in lower sex drive, energy, and strength ? Itching and sweating RISKS ARE GREATER WITH: ? History of drug misuse, substance use disorder, or overdose ? Mental health conditions (such as depression or anxiety) ? Sleep apnea ? Older age (65 years and older) ? Avoid alcohol while taking prescription opioids. Also, unless specifically advised by your health care provider, medications to avoid include: ? Benzodiazepines (such as Xanax or Valium) ? Muscle relaxants (such as Soma or Flexeril) ? Hypnotics (such as Ambien or Lunesta) ? Other prescription opioids KNOW YOUR OPTIONS Talk to your health care provider about ways to manage your pain that don?t involve prescription opioids. Some of these options may actually work better and have fewer risks and side effects. Options may include: ? Pain relievers such as acetaminophen, ibuprofen, and naproxen ? Some medication that are also used for depression or seizures ? Physical therapy and exercise ? Cognitive behavioral therapy, a psychological, goal-directed approach, in which patients learn how to modify physical, behavioral, and emotional triggers of pain and stress. IF YOU ARE PRESCRIBED OPIOIDS FOR PAIN: ? Never take opioids in greater amounts or more often than prescribed. ? Follow up with your primary health care provider. o Work together to create a plan on how to manage your pain. o Talk about ways to help manage your pain that don?t involve prescription opioids. o Talk about any and all concerns and side effects. ? Help prevent misuse and abuse o Never sell or share prescription opioids. o Never use another person?s prescription opioids. ? Store prescription opioids in a secure place and out of reach of others (this may include visitors, children, friends, and family). ? Safely dispose of unused prescription opioids: Find your community drug take-back program or your pharmacy mail-back program, or flush them down the toilet, following guidance from the Food and Drug Administration (www.fda.gov/Drugs/Re sourcesForYou). ? Visit www.cdc.gov/drugoverd ose to learn about the risks of opioids abuse and overdose. ? If you believe you may be struggling with addiction, tell your health caregivers non medical and ask for guidance or call [facility]?S National Helpline at 6-779-599-JFAR. j Source: US Department of Health and Human Services/Center for Disease Control & Prevention [facility] Medications Given: Medication Dose Route No medications found. Medication Information: New Medications Printed Prescriptions orphenadrine (orphenadrine 100 mg ER Tab) 1 Tabs By Mouth 2 times a day for 7 Days. Refills: 0. Comment: Pharmacy Information: Thank you for choosing [facility] Patient Education Materials: Cryotherapy Cryotherapy is when you put ice on your injury. Ice helps lessen pain and puffiness (swelling) after an injury. Ice works the best when you start using it in the first 24 to 48 hours after an injury. HOME CARE ? Put a dry or damp towel between the ice pack and your skin. ? You may press gently on the ice pack. ? Leave the ice on for no more than 10 to 20 minutes at a time. ? Check your skin after 5 minutes to make sure your skin is okay. ? Rest at least 20 minutes between ice pack uses. ? Stop using ice when your skin loses feeling (numbness). ? Do not use ice on someone who cannot tell you when it hurts. This includes small children and people with memory problems (dementia). GET HELP RIGHT AWAY IF: ? You have white spots on your skin. ? Your skin turns blue or pale. ? Your skin feels waxy or hard. ? Your puffiness gets worse. MAKE SURE YOU: ? Understand these instructions. ? Will watch your condition. ? Will get help right away if you are not doing well or get worse. Document Released: 01/09/2009 Document Revised: 10/15/2012 Document Reviewed: 03/15/2012 ExitCare? Patient Information ?2015 [employer]. This information is not intended to replace advice given to you by your health care provider. Make sure you discuss any questions you have with your health care provider. Back Pain, Adult Back pain is very common. The pain often gets better over time. The cause of back pain is usually not dangerous. Most people can learn to manage their back pain on their own. HOME CARE ? Stay active. Start with short walks on flat ground if you can. Try to walk farther each day. ? Do not sit, drive, or line repairer tower one place for more than 30 minutes. Do not stay in bed. ? Do not avoid exercise or work. Activity can help your back heal faster. ? Be careful when you bend or lift an object. Bend at your knees, keep the object close to you, and do not twist. ? Sleep on a firm mattress. Lie on your side, and bend your knees. If you lie on your back, put a pillow under your knees. ? Only take medicines as told by your doctor. ? Put ice on the injured area. ? Put ice in a plastic bag. ? Place a towel between your skin and the bag. ? Leave the ice on for 15-20 minutes, 03-04 times a day for the first 2 to 3 days. After that, you can switch between ice and heat packs. ? Ask your doctor about back exercises or massage. ? Avoid feeling anxious or stressed. Find good ways to deal with stress, such as exercise. GET HELP RIGHT AWAY IF: ? Your pain does not go away with rest or medicine. ? Your pain does not go away in 1 week. ? You have new problems. ? You do not feel well. ? The pain spreads into your legs. ? You cannot control when you poop (bowel movement) or pee (urinate). ? Your arms or legs feel weak or lose feeling (numbness). ? You feel sick to your stomach (nauseous) or throw up (vomit). ? You have belly (abdominal) pain. ? You feel like you may pass out (faint). MAKE SURE YOU: ? Understand these instructions. ? Will watch your condition. ? Will get help right away if you are not doing well or get worse. Document Released: 01/09/2009 Document Revised: 10/15/2012 Document Reviewed: 11/25/2014 ExitCare? Patient Information ?2015 [employer]. This information is not intended to replace advice given to you by your health care provider. Make sure you discuss any questions you have with your health care provider. TREVOR Ahn MICHAEL J , have received the following patient education materials/instruction s and have verbalized understanding: Patient Education Materials: Cryotherapy, Zwzs-by-Ixyv; Back Pain, Adult, Oqgv-te-Ecac Follow-up Instructions: With: Address: When: [place] [address] [facility] (1) Within 1 to 2 days Comments: Return to ED if symptoms worsen Prescriptions: [orphenadrine (orphenadrine 100 mg ER Tab)] Patient Signature Date Clinician/Nurse Signature Date 02/07/19 03:45:43 Normal [facility] Vital Signs Date Time Vital Sign Value Performing Clinician Facility 06-17-2024 09:20-0500 Body height 170.18 cm [facility] 06-17-2024 09:20-0500 Body mass index (BMI) [Ratio] 32.1 kg/m2 [facility] 06-17-2024 09:20-0500 Body weight 93.09 kg [facility] 06-17-2024 09:20-0500 Diastolic blood pressure 95 mm[Hg] [facility] 06-17-2024 09:20-0500 Heart rate 61 /min [facility] 06-17-2024 09:20-0500 Respiratory rate 12 /min [facility] 06-17-2024 09:20-0500 Systolic blood pressure 165 mm[Hg] [facility] 02-14-2024 08:49-0400 Body height 170.18 cm [facility] 02-14-2024 08:49-0400 Body mass index (BMI) [Ratio] 30.4 kg/m2 [facility] 02-14-2024 08:49-0400 Body weight 88.11 kg [facility] 02-14-2024 08:49-0400 Diastolic blood pressure 86 mm[Hg] [facility] 02-14-2024 08:49-0400 Heart rate 60 /min [facility] 02-14-2024 08:49-0400 Respiratory rate 12 /min [facility] 02-14-2024 08:49-0400 Systolic blood pressure 155 mm[Hg] [facility] 08-18-2023 08:30-0500 Body height 170.18 cm Deo Ball Other [employer] [facility] [employer] Other 08-18-2023 08:30-0500 Body mass index (BMI) [Ratio] 30.51 kg/m2 Deo Ball Other [employer] [facility] [employer] Other 08-18-2023 08:30-0500 Body weight 88.36 kg Deo Ball Other [employer] [facility] [employer] Other 08-18-2023 08:30-0500 Diastolic blood pressure 88 mm[Hg] Deo Ball Other [employer] Other 08-18-2023 08:30-0500 Respiratory rate 12 /min Deo Ball Other [employer] Other 08-18-2023 08:30-0500 Systolic blood pressure 139 mm[Hg] Deo Ball Other [employer] Other 06-06-2023 09:30-0400 Body height 170.18 cm Deo Ball Other [employer] Other 06-06-2023 09:30-0400 Body mass index (BMI) [Ratio] 29.35 kg/m2 Deo Ball Other [employer] Other 06-06-2023 09:30-0400 Body weight 85 kg Deo Ball Other [employer] Other 06-06-2023 09:30-0400 Diastolic blood pressure 89 mm[Hg] Deo Ball Other [employer] Other 06-06-2023 09:30-0400 Respiratory rate 12 /min Deo Ball Other [employer] Other 06-06-2023 09:30-0400 Systolic blood pressure 139 mm[Hg] Deo Ball Other [employer] Other 09-13-2022 09:30-0500 Body height 170.18 cm Deo Ball Other [employer] Other 09-13-2022 09:30-0500 Body mass index (BMI) [Ratio] 30.1 kg/m2 Deo Ball Other [employer] Other 09-13-2022 09:30-0500 Body weight 87.18 kg Deo Reina Other [employer] Other 09-13-2022 09:30-0500 Diastolic blood pressure 82 mm[Hg] Deo Reina Other [employer] Other 09-13-2022 09:30-0500 Respiratory rate 12 /min Deo Reina Other [employer] Other 09-13-2022 09:30-0500 Systolic blood pressure 124 mm[Hg] Deo Reina Other [employer] Other Encounters Encounter Date Encounter Type Care Provider Facility Start: 06-17-2024 End: 06-17-2024 ambulatory [facility] Work Phone: Start: 06-17-2024 End: 06-17-2024 Patient encounter procedure [facility] Physician [facility] Work Phone: Start: 02-14-2024 End: 02-14-2024 ambulatory [facility] Work Phone: Start: 02-14-2024 End: 02-14-2024 Patient encounter procedure [facility] Physician [facility] Work Phone: Start: 08-18-2023 End: 08-18-2023 ambulatory Deo Reina Other [employer] Other Start: 08-18-2023 Encounter for genera l adult medical examination without abnormal findings Deo Reina [facility] Start: 08-18-2023 Periodic preventive med est patient 40-64yrs Deo Reina [facility] Start: 06-06-2023 End: 06-06-2023 ambulatory Deo Reina Other [employer] Other Start: 06-06-2023 Office outpatient vi sit 15 minutes Deo Reina [facility] Start: 04-19-2023 End: 04-19-2023 ambulatory Deo Reina Other [employer] Other Start: 04-19-2023 Telephone encounter [facility]o [facility] Start: 10-14-2022 End: 10-14-2022 ambulatory Deo Reina Other [employer] Other Start: 10-14-2022 Telephone encounter Deo [facility] Start: 09-13-2022 End: 09-13-2022 ambulatory Deo Reina Other [employer] Other Start: 09-13-2022 Office outpatient vi sit 25 minutes eDo Reina [facility] Start: 08-29-2022 End: 08-29-2022 ambulatory Deo Reina Other [employer] Other Start: 08-29-2022 Telephone encounter Deo [facility] Start: 03-01-2022 End: 03-02-[address] DEO REINA Facility:[facility] Start: 01-12-2022 Encounter for genera l adult medical examination without abnormal findings DR DEO REINA [facility] Start: 01-06-2022 Adult health examination Deo Reina Other [employer] Other Start: 01-06-2022 End: 01-07-[address] DEO REINA Facility:[facility] Start: 01-06-2022 End: 01-07-2022 Encounter for general adult medical examination without abnormal findings DR DEO REINA Facility:[facility] Procedures Date Procedure Procedure Detail Performing Clinician Start: 01-06-[address] JOE [facility] [place] Comment on above: Performed By: #### P [facility] #### [facility] [address] [place] [address] Dr. Aidee Go Start: 03-27-2017 Hypertension screening Deo Reina Other Depression screening Stacey Reina Other Screening for malign ant neoplasm of prostate Deo Reina Other Plan of Treatment Date Care Activity Detail Author US Lower extremity vein - left [facility] Payers Date Payer Category Payer Unknown [id number] 1970 Unknown [id number] 1960 Unknown [id number] [employer] Blue Shield [id number] Medicaid [employer] [id number] Self-pay Self Pay [id number] Unknown O [id number] Social History Date Type Detail Facility Sex Assigned At [facility] Start: 03-25-2019 End: 03-25-2019 Tobacco smoking status NHIS Never smoked tobacco (finding) [facility] Start: 1970 Sex Assigned At Male [facility] Start: 06-17-2024 Sex Male (finding) [facility] Evaluation note 08-18-2023 Note Date & Type Note Facility 08-18-2023 Evaluation note Encounter Date Diagnosis Assessment Notes Aug, Wellness examination (ICD-10 - Z00.00) Healthy diet and exercise. Reviewed age-appropria te preventive testing recommended. Aug, IFG (impaired fasting glucose) (ICD-10 - R73.01) Healthy diet, exercise and weight loss recommended. A1C yearly Aug, Primary hypertension (ICD-10 - I10) This patient is instructed to consume a healthy, low-fat, low-salt diet. They are also encouraged to continue exercise to achieve/maint ain a normal BMI. Aug, Recurrent major depressive disorder, in full remission (ICD-10 - F33.42) Mood stable w/ treatment. INstructed to continue medication w/o interruption. Instructed to avoid abrupt d/c of medications. Aug, Chronic venous insufficiency (ICD-10 - I87.2) Avoid salt and elevate lower extremities, support stockings, inspect legs and feet daily for blisters and ulcerations. Aug, Gastroesophageal reflux disease with esophagitis without hemorrhage (ICD-10 - K21.00) Avoid lying flat after eating. Avoid eating 2 hours prior to bedtime. Smaller, frequent meals may be better tolerated.Grant ght loss if overweight.PP I with any heartburn.Mon itor for dysphagia. Aug, Screening PSA (prostate specific antigen) (ICD-10 - Z12.5) KATHY refused. Symptoms tolerable, yearly PSA [facility] Other Evaluation note 06-06-2023 Note Date & Type Note Facility 06-06-2023 Evaluation note Encounter Date Diagnosis Assessment Notes May, Primary hypertension (ICD-10 - I10) This patient is instructed to consume a healthy, low-fat, low-salt diet. They are also encouraged to continue exercise to achieve/maint ain a normal BMI. May, Gastroesophageal reflux disease with esophagitis without hemorrhage (ICD-10 - K21.00) Diet instructions: Smaller portions, avoid eating and laying flat, avoid eating or drinking prior to bedtime. Weight loss. May, Chronic venous insufficiency (ICD-10 - I87.2) Avoid salt and elevate lower extremities, support stockings, inspect legs and feet daily for blisters and ulcerations. May, IFG (impaired fasting glucose) (ICD-10 - R73.01) Healthy diet and exercise Yearly A1C May, Overweight (ICD-10 - E66.3) This patient has been instructed on a low-fat, high-fiber diet. They are instructed to reduce calories, portion sizes and snacks. It is recommended that they exercise for 30 minutes, 3-5 times weekly. May, History of DVT (deep vein thrombosis) (ICD-10 - Z86.718) Low salt diet, elevate and compression. Moisturizer to prevent xerosis and blisters. May, Recurrent major depressive disorder, in full remission (ICD-10 - F33.42) Stable mood, no change in medical treatment [facility] Other Evaluation note 04-19-2023 Note Date & Type Note Facility 04-19-2023 Evaluation note Encounter Date Diagnosis Assessment Notes Apr, Essential hypertension (ICD-10 - I10) [facility] Other Evaluation note 10-14-2022 Note Date & Type Note Facility 10-14-2022 Evaluation note Encounter Date Diagnosis Assessment Notes Oct, Recurrent major depressive disorder, in full remission (ICD-10 - F33.42) [facility] Other Evaluation note 09-13-2022 Note Date & Type Note Facility 09-13-2022 Evaluation note Encounter Date Diagnosis Assessment Notes Sep, Essential hypertension (ICD-10 - I10) This patient is instructed to consume a healthy, low-fat, low-salt diet. They are also encouraged to continue exercise to achieve/maint ain a normal BMI. Sep, Chronic venous insufficiency (ICD-10 - I87.2) Avoid salt and elevate lower extremities, support stockings, inspect legs and feet daily for blisters and ulcerations. Sep, Gastroesophageal reflux disease with esophagitis without hemorrhage (ICD-10 - K21.00) Diet instructions: Smaller portions, avoid eating and laying flat, avoid eating or drinking prior to bedtime. Weight loss. Continue PPI Sep, Recurrent major depressive disorder, in full remission (ICD-10 - F33.42) Healthy diet, exercise, decrease alcohol intake and continue medication Sep, Uncomplicated alcohol dependence (ICD-10 - F10.20) Stressed importance of limiting alcohol intake. Must reduce gradually due to recurrent alcohol w/d seizures Sep, Obesity (BMI 30.0-34.9) (ICD-10 - E66.9) This patient has been instructed on a low-fat, high-fiber diet. They are instructed to reduce calories, portion sizes and snacks. It is recommended that they exercise for 30 minutes, 3-5 times weekly. [facility] Other Evaluation note Note Date & Type Note Facility Evaluation note No Information [facility] Other Evaluation note Note Date & Type Note Facility Evaluation note Diagnosis Onset Date GERD (gastroesophageal reflux disease) acute History of seizure due to alcohol withdrawal acute Hypercholesterolemia acute Major depression acute Thrombocytopenia acute HTN (hypertension) chronic [facility] [place] Work Phone: Evaluation note Note Date & Type Note Facility Evaluation note Diagnosis Onset Date Resolution Chronic venous insufficiency of lower extremity acute June 17 9:10am Lymphedema due to venous disease acute June 17 9:10am Post-phlebitic syndrome acute N ovember 2023 9:10am Thrombocytopenia acute June 17, 2024 9:10am HTN (hypertension) chronic Novemb er 2023 9:10am [facility] [place] Work Phone: History general Narrative - Reported Note Date & Type Note Facility History general Narrative - Reported Type Medical History Iron deficiency anem ia due to chronic blood loss Medical History Recurrent major depr essive disorder, in full remission Medical History Gastroesophageal ref lux disease with esophagitis without hemorrhage Medical History Chronic venous insufficiency Medical History Essential hypertension Medical History Anemia Medical History Screening PSA (prost ate specific antigen) Medical History History of DVT (deep vein thromb osis) Medical History Hyperglycemia Medical History Hyponatremia Medical History Alcohol withdrawal s eizure without complication Surgical History CHOLECYSTECTOMY Surgical History 2 HERNIA PROCEDURES Hospitalization History SEE SURGICAL HX [facility] Other Summary Purpose Family History Relationship Condition Age at Onset Recorded Date/T diane father Unknown mother Unknown Alcoholism Unknown Advance Directives Advance Directive Response Recorded Date/ Time Advance Directives No June 5:55pm Advance Directive Response Recorded Date/ Time Advance Directives No June 4:55pm Chief Complaint and Reason for Visit Chief Complaint 6 month follow up Reason for Visit GERD (gastroesophage al reflux disease) History of seizure due to alcohol withdrawal Hypercholesterolemia Major depression Thrombocytopenia HTN (hypertension) Chief Complaint Admit Date left leg draining June 17, 2024 9:10am Reason for Visit Admit Date Chronic venous insufficiency of lower ex tremity June 17, 2024 9:10am Lymphedema due to venous disease Novembe r 2023 9:10am Post-phlebitic syndrome June 17 9:10am Thrombocytopenia June 17, 2024 9:10am HTN (hypertension) June 17, 2024 9:10am Additional Source Comments (unrecognized sect ion and content) No Status Records FoundNo Status Records Found INFORMATION SOURCE (unrecogn ized section and content) DATE CREATED AUTHOR 02/07/2019 Ralf Neville [facility] DATE CREATED AUTHOR AUTHOR'S ORGANIZ ATION 03/08/2022 [facility] REASON FOR VISIT (unrecogniz ed section and content) prescription refillcheck upp rescription refillRefillNo Informationmedication checkWELLNESS Care Teams (unrecognized sec tion and content) Team Status: Active Member Role Status Dates Deo Reina , Primary Care Provider Active Team Status: Inactive Member Role Status Dates Deo Reina , Primary Care Provide r, Attending Provider Active Start: February 14, 2024 End: February 14, 2024 Team Status: Inactive Member Role Status Dates Deo Reina , Primary Care Provide r, Attending Provider Active Start: June 17, 2024 End: June 17, 2024 Goals (unrecognized section and content) Goals may be documented in a n alternate section FOR RECORDS PERTAINING TO PATIENTS WHO ARE OR HAVE BEEN ENROLLED IN A CHEMICAL DEPENDENCY/SUBSTANCEABUSE PROGRAM, SOME INFORMATION MAY BE OMITTED. This clinical summary was aggregated from multiple sources. Caution should be exercised in using it in the provision of clinical care. This summary normalizes information from multiple sources, and as a consequence, information in this document may materially change the coding, format and clinical context of patient data. In addition, data may be omitted in some cases. CLINICAL DECISIONS SHOULD BE BASED ON THE PRIMARY CLINICAL RECORDS. [facility]. provides no warranty or guarantee of the accuracy or completeness of information in this document.
== END 2024-07-19 08:49 | disposition home or self-care (01) ==
LOC: WC 08:49
PROVIDERS: PCP Internal Medicine; Visit Provider Podiatrist Foot & Ankle Surgery
DX: I87.332 Chronic venous hypertension (idiopathic) with ulcer and inflammation of left lower extremity (principal); L97.821 Non-pressure chronic ulcer of other part of left lower leg limited to breakdown of skin
CPT/HCPCS: 29580

== ENCOUNTER 2024-07-23 09:00 | Outpatient (OUT) | payer OTHER, SELFPAY ==
--- NOTE | 2024-07-22 08:28 | VEINCLINIC_ITS ---
Vital Signs 07/23/24 09:22 Height 5 ft 6 in Weight 90.718 kg BMI 32.3 Respiration 16 Varicose Veins Patient is a 54 year old male in this day as a referral from Kathrin Ulrich secondary to a slow healing spontaneous wound to left lateral mid lower leg. Patient states he developed this wound approximately 2 months ago. This is his first sponataneous wound. Patient has worn bilateral leg knee high compression stockings for approximately 2 years, but is currently unable to due to the wound and the extensiveness of the edema left leg greater than right leg. Patient c/o of bilateral leg edema and achiness left leg greater than right for many years. Patient does have a history of bilateral leg DVT's along with P.E. most notably after surgery. Patient is unaware of any family history of varicose vein disease. Jose Ahn MD personally performed the services described in this documentation, as scribed by Minh Monteiro RN in my presence and it is both accurate and complete. IMinh RN, am scribing for, and in the presence of, Dr. Jose Porter and in the presence of the patient. . thigh: bilateral (Symptoms left > right leg), knee: bilateral, calf: bilateral, ankle: bilateral and felix: bilateral aching, cramping, dull and tender 9 3 months Worsened in recent months: Yes standing and sitting analgesics, elevating extremities and compression stockings Reports muscle spasms of leg, heaviness, limb pain and edema History of lower extremity trauma: No Superficial thrombophlebitis: Yes Family history of varicose veins: no Has patient had previous lower extremity venous surgery: No Patient has previously received the following treatment(s) for lower extremity varicose veins: Reports none Does patient have a history of : no Does patient intend to have future pregnancies: not applicable Has patient had lower extremity venous scan with relux testing: No Support hose used: Yes Problems walking or doing physical activity: Yes How does it affect you: pain hinders activities of daily living including work Do you walk much: Yes Do you stand much: Yes Review of Systems ROS Narrative Jose Ahn MD personally performed the services described in this documentation, as scribed by Minh Monteiro RN in my presence and it is both accurate and complete. Minh Ahn RN, am scribing for, and in the presence of, Dr. oJse Porter and in the presence of the patient. Status of ROS 10 or more systems reviewed and unremark able except as noted in history and below Cardiovascular Reports: edema Integumentary/Breast Reports: itching, redness, skin pain, skin tenderness, new lesion, non-healing lesion and changes in skin color Neurological Reports: weakness in extremities [facility] Medical History (Updated 07/23/24 @ 09:32 by Minh Monteiro) Bilateral leg edema ?R60.0 - Localized edema (ICD-10) Varicose veins of bilateral lower extremities with pain ?I83.813 - Varicose veins of bilateral lower extremities with pain (ICD-10) Hypertension ?I10 - Essential (primary) hypertension (ICD-10) Pulmonary embolism ?I26.99 - Other pulmonary embolism without acute cor pulmonale (ICD-10) DVT of lower extremity, bilateral ?I82.403 - Acute embolism and thrombosis of unspecified deep veins of lower extremity, bilateral (ICD-10) Surgical History (Updated 07/23/24 @ 09:32 by Minh Monteiro) History of hernia surgery ?Z98.890 - Other specified postprocedural states (ICD-10) ?Z87.19 - Personal history of other diseases of the digestive system (ICD-10) History of cholecystectomy ?Z90.49 - Acquired absence of other specified parts of digestive tract (ICD- 10) Previous back surgery ?Z98.890 - Other specified postprocedural states (ICD-10) Family History (Updated 07/23/24 @ 09:33 by Minh Monteiro) Other Family history of diabetes mellitus Social History (Updated 07/23/24 @ 09:33 by Minh Monteiro) Within the past year, how often did you have a drink containing alcohol: 4 or more times a week Smoking status: Never smoker Non-prescribed substance use: denies use Meds Home Medications and Allergies Home Medications ?Medication ?Instructions ?Recorded ?Confirmed ?Type aripiprazole 10 mg tablet 10 mg PO DAILY 07/22/24 07/22/24 History lisinopril 20 mg tablet 20 mg PO DAILY 07/22/24 07/22/24 History pantoprazole 40 mg tablet,delayed 40 mg PO DAILY 07/22/24 07/22/24 History release sertraline 100 mg tablet 100 mg PO DAILY 07/22/24 07/22/24 History torsemide 10 mg tablet 10 mg PO DAILY 07/22/24 07/22/24 History Allergies Allergy/AdvReac Type Severity Reaction Status Date / Time cranberry Allergy Intermediate Rash Verified 07/23/24 09:35 shellfish derived Allergy Intermediate Nausea Verified 07/23/24 09:35 Exam Narrative Exam Narrative: Left lateral lower leg wound 1cm in diameter Jose Ahn MD personally performed the services described in this documentation, as scribed by Minh Monteiro RN in my presence and it is both accurate and complete. Minh Ahn RN, am scribing for, and in the presence of, Dr. Jose Porter and in the presence of the patient. Constitutional Documenting provider has reviewed patient's vital signs: yes Common normals: oriented x3 Nutritional appearance: overweight Cardio Peripheral pulses: posterior tibial pulses present and dorsalis pedis pulses present Extremity Common normals: normal capillary refill General: calf tenderness and edema Right lower extremity: lower leg Right lower leg: inspection and palpation Left lower extremity: lower leg Left lower leg: inspection and palpation Neuro Common normals: oriented x3 Results Additional Findings Additional findings: Bilateral leg reflux u/s reveals severe right great and small saphenous venous insufficiency with dilation along with moderate left great and small saphenous vein insufficiency with associated dilation, bilateral leg incompetent perforating veins, and lastly bilateral leg branch saphenous truncal tributary varicosities. Jose Ahn MD personally performed the services described in this documentation, as scribed by Minh Monteiro RN in my presence and it is both accurate and complete. Minh Ahn RN, am scribing for, and in the presence of, Dr. Jose Porter and in the presence of the patient. Assessment and Plan Assessment and Plan (1) Varicose veins of bilateral lower extremities with pain: Plan Patient is to continue use of bilateral leg knee high compression stockings, rest, and elevate bilateral legs/feet. Patient to return for EVLT of left GSV. Jose Ahn MD personally performed the services described in this documentation, as scribed by Minh Monteiro RN in my presence and it is both accurate and complete. Minh Ahn RN, am scribing for, and in the presence of, Dr. Jose Porter and in the presence of the patient.
--- NOTE | 2024-07-22 08:39 | P.DS_ITS ---
Discharge Plan Discharge Disposition: Home, Self-Care Outpatient Diagnostics: VC Endovenous Ablation 1VeinLT (Routine) Timeframe: 2 Weeks Facility: [facility] - Location: [facility] Ordered By: Jose Porter Plan of Treatment: EVLT of left GSV Print Language: Welsh Discharge Date/Time: 07/23/24 11:45
--- NOTE | 2024-07-23 09:02 | VEIN_ITS ---
Patient Name: VIOLETTA MURRAY MR#: [id number] : 1970 Exam Date: 07/23/2024 Ordering Doctor: KATERIN PICHARDO RADIOLOGY REPORT PROCEDURE: [facility] - OFFICE VISIT INITIAL COMPARISON: None. PROGRESS NOTES: 54-year-old male who is referred by Kathrin Kam for nonhealing left leg spontaneous wounds. The patient developed a wound approximately 2 months ago. The patient has worn compression stockings for approximately 2 years. The patient does complain of lower extremity pain swelling and varicose veins. The patient's pain is dull rated as 3 on a scale of 1-10. The patient's symptoms are exacerbated by prolonged sitting and standing and are only partially relieved by rest, leg elevation and compression stockings. The patient does complain of multiple bilateral deep vein thrombus and pulmonary embolus related to surgery. No familial history of varicose veins. The patient denies any signs and symptoms to suggest arterial ischemia. The patient describes a past medical history significant for bilateral leg edema, varicose veins, hypertension, pulmonary embolism and lower extremity DVT. Surgical history significant hernia repair, cholecystectomy and back surgery. Family history of diabetes. The patient drinks alcohol forward times per week and was counseled alcohol cessation. The patient has never smoked. No drug abuse. See separate report for medications. No history of deep venous thrombus or pulmonary embolus. See separate history and physical for medication list. No prior treatment for varicose or spider veins. Nursing notes were reviewed. After history and physical exam I discussed at length the pathophysiology of venous hypertension and possible treatments, therapies and strategies available. We discussed at length the importance of elevating the lower extremities above the level of the heart, increased physical activity and compression stocking use. We discussed conservative treatment with compression stockings. We discussed surgical interventions including ligation stripping and phlebectomy. We discussed intravenous laser ablation and micro foam chemical ablation at length. Risks benefits and alternatives were discussed with the patient's and patient's questions were answered. Ultrasound venous reflux study performed the same day was discussed at length with the patient. The report demonstrates severe right and moderate left great and small saphenous vein venous insufficiency with dilatation and saphenofemoral/saphenopopliteal junction reflux. Bilateral incompetent perforating veins , with the 2 largest associated with left leg wounds. Bilateral incompetent varicose veins. PHYSICAL EXAM: The right leg demonstrates moderate varicose reticular and spider veins. Moderate subcutaneous edema below the knee. Mild hemosiderin staining. No active ulceration The left leg demonstrates moderate varicose, reticular and spider veins. Moderate subcutaneous edema below the knee. Mild hemosiderin staining. Multiple active ulcerations with skin thickening sloughing erythema and warmth. Both thighs, legs and feet were symmetrically warm to the touch. Good posterior tibial and dorsalis pedis pulses were present bilaterally. VEIN/VC Facility EST Comprehensive IMPRESSION: 1. Bilateral great and small saphenous vein venous insufficiency with dilatation and saphenofemoral/saphenopopliteal junction reflux. Bilateral incompetent perforating veins 2. Bilateral in comp lower extremity varicose veins 3. Moderate bilateral lower extremity subcutaneous edema. Multiple left leg venous stasis ulcerations 4. No flow significant arterial disease 5. CEAP: C6, Ep, Asp, Pr PLAN: 1. Endovenous laser ablation of the left great saphenous vein followed by left perforating veins followed by right great saphenous vein followed by left small saphenous vein followed by right small saphenous vein 2. Micro foam chemical ablation bilateral incompetent varicose veins, left before right 3. Long-term use of bilateral near thigh-high 20-30 mm compression stockings 4. Long-term leg elevation and increased physical activity for symptomatic relief 5. Reduction in alcohol intake or cessation Nurse notes, history and physical were reviewed and confirmed, see attached forms. The nurse was present throughout the physical exam and consultation Dictated by: Jose Porter MD on 07/23/2024 at 11:33 Approved by: Jose Porter MD on 07/23/2024 at 11:45
--- NOTE | 2024-07-23 09:03 | VEIN_ITS ---
Patient Name: VIOLETTA MURRAY MR#: [id number] : 1970 Exam Date: 07/23/2024 Ordering Doctor: KATERIN PICHARDO RADIOLOGY REPORT PROCEDURE: VC EXT VENOUS REFLUX ALLAN LMTD COMPARISON: None. INDICATIONS: I83.813 Bilateral painful varicose veins TECHNIQUE: Duplex imaging of the lower extremity to assess the deep and superficial venous system for the presence of deep or superficial venous incompetence and to document the location and severity of disease. The study includes evaluation of the great saphenous vein (GSV), anterior accessory saphenous vein (AASV) and small saphenous vein (SSV). Patient scanned in reverse Trendelenburg and standing. FINDINGS: RIGHT LOWER EXTREMITY: Saphenofemoral Junction Reflux: Yes 8.9mm 3.3 sec GSV: Diam (mm) Reflux/ Time (sec) Proximal Thigh 5.8 Yes 3.6 Mid Thigh 3.3 Yes 1.6 Distal Thigh 3.8 Yes 1.9 Prox Calf 3.7 Yes 1.4 Mid Calf 1.9 Yes 0.5 Saphenopopliteal Junction Reflux: 5.5mm Yes 3.1 SSV: Proximal Calf 5.5 Yes 1.7 Mid Calf 5.8 Yes 3.5 AASV: Proximal Thigh 3.9 No Mid Thigh 2.3 Yes 0.5 Distal Thigh Thrombi: No acute or chronic thrombus visualized Compressibility: Normal Flow: Normal Preforator: Dist/med calf 3.7mm with 1.8s reflux. Mid/med calf 2.6mm with 0s reflux. Mid/post calf 4.5mm with 3.6s reflux. Tech Note: Incompetent GSV and SSV. Patent varicose vein dist/med calf 4.0mm with 2.2s reflux. Patent varicose vein mid/posterior calf 5.5mm with 1.0s reflux. Patent varicose vein dist/med calf 3.8mm with 1.4s reflux. LEFT LOWER EXTREMITY: Saphenofemoral Junction Reflux: Yes 10.2 mm 2.0 sec GSV: Diam (mm) Reflux/Time (sec) Proximal Thigh 7.9 Yes 1.5 Mid Thigh 6.9 Yes 1.8 Distal Thigh 5.4 Yes 1.5 Prox Calf 5.5 Yes 2.4 Mid Calf 1.7 No Saphenopopliteal Junction Relux: 6.3 mm Yes 2.3 SSV: Proximal Calf 5.5 Yes 2.3 Mid Calf 4.7 No AASV: Proximal Thigh 3.6 No Mid Thigh 3.5 No Distal Thigh Thrombi: No acute or chronic thrombus visualized Compressibility: Normal Flow: Normal Overnight Cashier: Dist/med calf 5.3mm with 1.3s reflux. Mid/med calf 5.2mm with 1.2s reflux. Tech Note: Incompetent GSV and SSV. Patent varicose vein prox/med calf 4.3mm with 2.1s reflux. Patent varicose vein mid/med thigh 5.3mm with 1.5s reflux. Patent varicose vein mid/med calf 4.3mm with 0s reflux. CONCLUSION: 1. Severe right great and small saphenous vein venous insufficiency with dilatation and saphenofemoral/saphenopopliteal junction reflux 2. Moderate left great and small saphenous vein venous insufficiency with dilatation and saphenofemoral/saphenopopliteal junction reflux 3. Bilateral incompetent perforating veins 4. Bilateral incompetent varicose veins Dictated by: Jose Porter MD on 07/23/2024 at 10:24 Approved by: Jose Porter MD on 07/23/2024 at 10:26
--- OUTSIDE RECORDS SUMMARY | 2024-07-23 09:09 | XMS_ITS | CCD ---
Author Organization [facility] Care Team Providers Care Continuous Still Operator Name Role Phone ANSELMO, DR FELIX Primary [...] Cranberry preparation Drug Allergy 4 Unknown Reaction [facility] Shellfish (1 source) Shellfish Food Allergy 4 Unknown Reaction [facility] (1 source) Shellfish Drug allergy (disorder) 7 [facility] (2 sources) patient allergy list reviewed by nurse or physicia Propensity to adverse reactions 7 Comment:Done [facility] Other (1 source) Cranberry preparation Drug Allergy 4 Unknown Reaction [facility] (1 source) Shellfish Allergy to substance 4 Unknown Reaction [facility] Medications Current Medications Medication Drug Class(es) Dates [...] 03-01-2022 BASO # 0.1 103/ul Normal 0.0-0.1 [facility] Comment on above: Performed By: #### C BC #### [facility] [address] [address] [address] Aidee Go Basophils/100 WBC (Bld) 0.9 % Normal 0.2-2.0 [facility] Comment on above: Performed By: #### C BC #### [facility] [address] [address] [address] Aidee Go EO # 0.1 103/ul Normal 0.0-0.7 [facility] Comment on above: Performed By: #### C BC #### [facility] [address] [place] [address] Dr. Aidee Go Eosinophils/100 WBC (Bld) 1.8 % Normal 0.9-7.0 [facility] Comment on above: Performed By: #### C BC #### [facility] [address] [place] [address] Dr. Aidee Go Erythrocyte distribution width (RBC) [Ratio] 15.0 % Normal 11.0-15.0 [facility] Comment on above: Performed By: #### C BC #### [facility] [address] [place] [address] Dr. Aidee Go Hematocrit (Bld) [Volume fraction] 37.9 % Critically low 42.0-54.0 [facility] Comment on above: Performed By: #### C BC #### [facility] [address] [place] [address] Dr. Aidee Go Hemoglobin (Bld) [Mass/Vol] 12.5 g/dL Critically low 14.0-18.0 [facility] Comment on above: Performed By: #### C BC #### [facility] [address] [place] [address] Dr. Aidee Go IG # 0.02 10e3/ul Normal 0.00-0.03 [facility] Comment on above: Performed By: #### C BC #### [facility] [address] [place] [address] Dr. Aidee Go IG % 0.4 % Normal 0.0-0.5 [facility] Comment on above: Performed By: #### C BC #### [facility] [address] [place] [address] Dr. Aidee Go LYMPH # 1.8 103/ul Normal 1.2-3.8 [facility] Comment on above: Performed By: #### C BC #### [facility] [address] [place] [address] Dr. Aidee Go Lymphocytes/100 WBC (Bld) 31.7 % Normal 20.5-60.0 [facility] Comment on above: Performed By: #### C BC #### [facility] [address] [place] [address] Dr. Aidee Go MANUAL DIFF REQ NO Normal [facility] Comment on above: Performed By: #### C BC #### [facility] [address] [place] [address] Dr. Aidee Go MCH (RBC) [Entitic mass] 29.1 pg Normal 25.9-34.0 [facility] Comment on above: Performed By: #### C BC #### [facility] [address] [place] [address] Dr. Aidee Go MCHC (RBC) [Mass/Vol] 33.0 g/dL Normal 29.9-35.2 [facility] Comment on above: Performed By: #### C BC #### [facility] [address] [place] [address] Dr. Aidee Go MCV (RBC) [Entitic vol] 88.1 fL Normal 80.0-94.0 [facility] Comment on above: Performed By: #### C BC #### [facility] [address] [place] [address] Dr. Aidee Go MONO # 0.6 103/ul Normal 0.3-0.8 [facility] Comment on above: Performed By: #### C BC #### [facility] [address] [place] [address] Dr. Aidee Go Monocytes/100 WBC (Bld) 10.5 % Normal 1.7-12.0 [facility] Comment on above: Performed By: #### C BC #### [facility] [address] [place] [address] Dr. Aidee Go NEUT # 3.1 103/ul Normal 1.4-6.5 [facility] Comment on above: Performed By: #### C BC #### [facility] [address] [place] [address] Dr. Aidee Go Neutrophils/100 WBC (Bld) 54.7 % Normal 43.0-75.0 [facility] Comment on above: Performed By: #### C BC #### [facility] [address] [address] [address] Aidee Go Platelet mean volume (Bld) [Entitic vol] 10.5 fL Normal 9.5-13.5 [facility] Comment on above: Performed By: #### C BC #### [facility] [address] [address] [address] Aidee Go PLT 144 103/ul Critically low 150-450 [facility] Comment on above: Performed By: #### C BC #### [facility] [address] [address] [address] Aidee Go RBC 4.30 106/ul Critically low 4.70-6.10 [facility] Comment on above: Performed By: #### C BC #### [facility] [address] [place] [address] Dr. Aidee Go WBC 5.6 103/ul Normal 4.0-11.0 [facility] Comment on above: Performed By: #### C BC #### [facility] [address] [place] [address] Dr. Aidee Go FERRITINon 03-01-2022 Ferritin [Mass/Vol] 25.0 ng/mL Critically low 26.0-388.[address] [facility] Comment on above: Performed By: #### B 12FOL, FETIBC, FERR #### [facility] [address] [place] [address] Dr. Aidee Go IRON AND TIBCon 03-01-2022 % SATURATION 12.2 % Normal [facility] Comment on above: Performed By: #### B 12FOL, FETIBC, FERR #### [facility] [address] [address] [address] Aidee Go Iron [Mass/Vol] 48.0 ug/dL Critically low 65.0-175.0 [facility] Comment on above: Performed By: #### B 12FOL, FETIBC, FERR #### [facility] [address] [address] [address] Aidee Go TIBC DIRECT 395.0 ug/dL Normal 250.0-450.0 [facility] Comment on above: Performed By: #### B 12FOL, FETIBC, FERR #### [facility] [address] [place] [address] Dr. Aidee Go VIT B12 AND FOLATEon 022 Cobalamin (Vitamin B12) [Mass/Vol] 606.0 pg/mL Normal 193.0-986.0 [facility] Comment on above: Performed By: #### B 12FOL, FETIBC, FERR #### [facility] [address] [place] [address] Dr. Aidee Go FOLATE 18.40 ng/mL Normal 8.60-58.90 [facility] Comment on above: Performed By: #### B 12FOL, FETIBC, FERR #### [facility] [address] [place] [address] Dr. Aidee Go CBC AUTO DIFFon 01-06-2022 BASO # 0.1 103/ul Normal 0.0-0.1 [facility] Comment on above: Performed By: #### C BC #### [facility] [address] [place] [address] Dr. Aidee Go Basophils/100 WBC (Bld) 1.0 % Normal 0.2-2.0 [facility] Comment on above: Performed By: #### C BC #### [facility] [address] [place] [address] Dr. Aidee Go EO # 0.2 103/ul Normal 0.0-0.7 [facility] Comment on above: Performed By: #### C BC #### [facility] [address] [place] [address] Dr. Aidee Go Eosinophils/100 WBC (Bld) 4.5 % Normal 0.9-7.0 [facility] Comment on above: Performed By: #### C BC #### [facility] [address] [place] [address] Dr. Aidee Go Erythrocyte distribution width (RBC) [Ratio] 15.0 % Normal 11.0-15.0 [facility] Comment on above: Performed By: #### C BC #### [facility] [address] [place] [address] Dr. Aidee Go Hematocrit (Bld) [Volume fraction] 38.6 % Critically low 42.0-54.0 [facility] Comment on above: Performed By: #### C BC #### [facility] [address] [place] [address] Dr. Aidee Go Hemoglobin (Bld) [Mass/Vol] 12.2 g/dL Critically low 14.0-18.0 [facility] Comment on above: Performed By: #### C BC #### [facility] [address] [place] [address] Dr. Aidee Go IG # 0.01 10e3/ul Normal 0.00-0.03 [facility] Comment on above: Performed By: #### C BC #### [facility] [address] [place] [address] Dr. Aidee Go IG % 0.2 % Normal 0.0-0.5 [facility] Comment on above: Performed By: #### C BC #### [facility] [address] [place] [address] Dr. Aidee Go LYMPH # 1.4 103/ul Normal 1.2-3.8 [facility] Comment on above: Performed By: #### C BC #### [facility] [address] [place] [address] Dr. Aidee Go Lymphocytes/100 WBC (Bld) 29.2 % Normal 20.5-60.0 [facility] Comment on above: Performed By: #### C BC #### [facility] [address] [place] [address] Dr. Aidee Go MANUAL DIFF REQ NO Normal [facility] Comment on above: Performed By: #### C BC #### [facility] [address] [place] [address] Dr. Aidee Go MCH (RBC) [Entitic mass] 28.2 pg Normal 25.9-34.0 [facility] Comment on above: Performed By: #### C BC #### [facility] [address] [place] [address] Dr. Aidee Go MCHC (RBC) [Mass/Vol] 31.6 g/dL Normal 29.9-35.2 [facility] Comment on above: Performed By: #### C BC #### [facility] [address] [place] [address] Dr. Aidee Go MCV (RBC) [Entitic vol] 89.1 fL Normal 80.0-94.0 [facility] Comment on above: Performed By: #### C BC #### [facility] [address] [place] [address] Dr. Aidee Go MONO # 0.5 103/ul Normal 0.3-0.8 [facility] Comment on above: Performed By: #### C BC #### [facility] [address] [place] [address] Dr. Aidee Go Monocytes/100 WBC (Bld) 10.1 % Normal 1.7-12.0 [facility] Comment on above: Performed By: #### C BC #### [facility] [address] [place] [address] Dr. Aidee Go NEUT # 2.7 103/ul Normal 1.4-6.5 [facility] Comment on above: Performed By: #### C BC #### [facility] [address] [place] [address] Dr. Aidee Go Neutrophils/100 WBC (Bld) 55.0 % Normal 43.0-75.0 [facility] Comment on above: Performed By: #### C BC #### [facility] [address] [place] [address] Dr. Aidee Go Platelet mean volume (Bld) [Entitic vol] 10.3 fL Normal 9.5-13.5 [facility] Comment on above: Performed By: #### C BC #### [facility] [address] [place] [address] Dr. Aidee Go PLT 145 103/ul Critically low 150-450 [facility] Comment on above: Performed By: #### C BC #### [facility] [address] [place] [address] Dr. Aidee Go RBC 4.33 106/ul Critically low 4.70-6.10 [facility] Comment on above: Performed By: #### C BC #### [facility] [address] [place] [address] Dr. Aidee Go WBC 4.9 103/ul Normal 4.0-11.0 [facility] Comment on above: Performed By: #### C BC #### [facility] [address] [place] [address] Dr. Aidee Go PROF 14(COMP METB)on 022 Albumin [Mass/Vol] 3.8 g/dL Normal 3.4-5.0 [facility] Comment on above: Performed By: #### C MP #### [facility] [address] [place] [address] Dr. Aidee Go Albumin/Globulin [Mass ratio] 1.0 {ratio} Normal [facility] Comment on above: Performed By: #### C MP #### [facility] [address] [place] [address] Dr. Aidee Go ALP [Catalytic activity/Vol] 66 U/L Normal 46-116 [facility] Comment on above: Performed By: #### C MP #### [facility] [address] [place] [address] Dr. Aidee Go ALT [Catalytic activity/Vol] 58 U/L Normal 16-63 [facility] Comment on above: Performed By: #### C MP #### [facility] [address] [place] [address] Dr. Aidee Go Anion gap [Moles/Vol] 15.6 mmol/L Normal [facility] Comment on above: Performed By: #### C MP #### [facility] [address] [place] [address] Dr. Aidee Go AST [Catalytic activity/Vol] 44 U/L Critically high 15-37 [facility] Comment on above: Performed By: #### C MP #### [facility] [address] [place] [address] Dr. Aidee Go Bilirubin [Mass/Vol] 0.2 mg/dL Normal 0.2-1.0 [facility] Comment on above: Performed By: #### C MP #### [facility] [address] [place] [address] Dr. Aidee Go Calcium [Mass/Vol] 9.1 mg/dL Normal 8.5-10.1 [facility] Comment on above: Performed By: #### C MP #### [facility] [address] [place] [address] Dr. Aidee Go Chloride [Moles/Vol] 101 mmol/L Normal 98-107 [facility] Comment on above: Performed By: #### C MP #### [facility] [address] [place] [address] Dr. Aidee Go CO2 [Moles/Vol] 24.8 mmol/L Normal 21.0-32.0 [facility] Comment on above: Performed By: #### C MP #### [facility] [address] [place] [address] Dr. Aidee Go Creatinine [Mass/Vol] 0.77 mg/dL Normal 0.70-1.30 [facility] Comment on above: Performed By: #### C MP #### [facility] [address] [place] [address] Dr. Aidee Go EGFR-AF CONGOLESE >60 Normal >=60 [facility] Comment on above: Performed By: #### C MP #### [facility] [address] [place] [address] Dr. Aidee Go EGFR-NON AF CONGOLESE >60 Normal >=60 [facility] Comment on above: Performed By: #### C MP #### [facility] [address] [place] [address] Dr. Aidee Go Globulin (S) [Mass/Vol] 3.8 g/dL Normal [facility] Comment on above: Performed By: #### C MP #### [facility] [address] [place] [address] Dr. Aidee Go Glucose [Mass/Vol] 103 mg/dL Normal 74-106 [facility] Comment on above: Performed By: #### C MP #### [facility] [address] [address] [address] Aidee Go Potassium [Moles/Vol] 4.4 mmol/L Normal 3.5-5.1 [facility] Comment on above: Performed By: #### C MP #### [facility] [address] [address] [address] Aidee Go Protein [Mass/Vol] 7.6 g/dL Normal 6.4-8.2 [facility] Comment on above: Performed By: #### C MP #### [facility] [address] [address] [address] Aidee Go Sodium [Moles/Vol] 137 mmol/L Normal 136-145 [facility] Comment on above: Performed By: #### C MP #### [facility] [address] [address] [address] Aidee Go Urea nitrogen [Mass/Vol] 9.0 mg/dL Normal 7.0-18.0 [facility] Comment on above: Performed By: #### C MP #### [facility] [address] [address] [address] Aidee Go Urea nitrogen/Creatinine [Mass ratio] 11.7 mg/mg Normal [facility] Comment on above: Performed By: #### C MP #### [facility] [address] [address] [address] Aidee Go ED Clinical Summaryon 2018 ED Clinical Summary [place] [id number] ED Clinical Summary Person Information Name: VIOLETTA MURRAY [place] Age: 48 Years : 1970 12:00 AM Sex: Male Language: PCP: NONE, XXXX Marital Status: Single Phone: [phone] Visit Id: Visit Reason: back pain Speciality: [...] AM Discharge Request 02/07/2019 3:45 AM ADDRESS: [address] [place], [place] [id number] [facility] DOC NOTES: MEDICAL INFORMATION: Prescriptions Given: Prescription Display orphenadrine (orphenadrine 100 mg ER Tab) 100 mg = 1 tab(s), Oral, BID, X 7 day(s), # 14 tab(s), Refills(s) 0 PATIENT EDUCATION INFORMATION: Instructions: Cryotherapy, Aanm-eu-Vaed; Back Pain, Adult, Owsg-va-Xrer Follow up: With: Address: When: Zain Cottrell [address] [place] [id number] [facility] (6) Within 1 to 2 days Comments: Return to ED if symptoms worsen DIAGNOSIS: 1:Chronic back pain Normal [facility] ED Patient Education Noteon 02-07-2019 ED Patient [...] Document Reviewed: 03/15/2012 ExitCare? Patient Information ?2015 [employer]. This information is not intended to replace [...] day. ? Do not sit, drive, or aircraft inspector one place for more than 30 minutes. [...] Document Reviewed: 11/25/2014 ExitCare? Patient Information ?2015 [employer]. This information is not intended to replace advice given to you by your health care provider. Make sure you discuss any questions you have with your health care provider. Normal [facility] ED Patient Summaryon 019 ED Patient Summary [address] [address] Patient Discharge Instructions Person Information Name: VIOLETTA MURRAY Age: 48 Years Arrival Date: 02/07/2019 3:38 AM Discharge Diagnosis: 1:Chronic back pain Primary Care Physician: LUC, XXXX Provider Information Primary Provider: Arlette Loomis DO Advanced Mixed Signal Design Engineer:Luc The exam and treatment you received in the Emergency Department were for an urgent problem and are not intended as complete care. It is important that you follow up with a doctor, nurse practitioner, or physician?s podiatry assistant for ongoing care. If your symptoms [...] Follow-up Instructions: With: Address: When: Zain Simba [address] [place] [id number] [facility] (1) Within 1 to 2 days Comments: Return to ED if symptoms worsen In the event that this physician does not participate in your insurance network, please consult with your insurance company to find a nearby participating provider. Patient Education Materials: Cryotherapy, Jbnh-pi-Gwey; Back Pain, Adult, Jcor-sn-Wxff A MESSAGE TO ALL PATIENTS REGARDING OPIOIDS PRESCRIPTION OPIOIDS: WHAT YOU NEED TO KNOW Prescription opioids can be used to help relieve kjsfknfe-xw-dwunif pain and are often prescribed following a [...] be struggling with addiction, tell your health health care / medical job titles and ask for guidance or call [facility]?S National Helpline at 2-884-198-PFXY. v Source: [place] Department of Health and Human Services/Center for Disease Control & Prevention [facility] Medications Given: Medication Dose Route No medications found. Medication Information: New Medications Printed Prescriptions orphenadrine (orphenadrine 100 mg ER Tab) 1 Tabs By Mouth 2 times a day for 7 Days. Refills: 0. Comment: Pharmacy Information: Thank you for choosing [facility] Patient Education Materials: Cryotherapy Cryotherapy is when [...] Document Reviewed: 03/15/2012 ExitCare? Patient Information ?2015 [employer]. This information is not intended to replace [...] day. ? Do not sit, drive, or aircraft inspector one place for more than 30 minutes. [...] Document Reviewed: 11/25/2014 ExitCare? Patient Information ?2015 [employer]. This information is not intended to replace advice given to you by your health care provider. Make sure you discuss any questions you have with your health care provider. TREVOR Ahn MICHAEL J , have received the following patient education materials/instruction s and have verbalized understanding: Patient Education Materials: Cryotherapy, Qllp-ko-Xaha; Back Pain, Adult, Muke-uf-Bojw Follow-up Instructions: With: Address: When: [place] [address] [facility] (1) Within 1 to 2 days Comments: Return to ED if symptoms worsen Prescriptions: [orphenadrine (orphenadrine 100 mg ER Tab)] Patient Signature Date Clinician/Nurse Signature Date 02/07/19 03:45:43 Normal [facility] Vital Signs Date Time Vital Sign Value Performing Clinician Facility 06-17-2024 09:20-0500 Body height 170.18 cm [facility] 06-17-2024 09:20-0500 Body mass index (BMI) [Ratio] 32.1 kg/m2 [facility] 06-17-2024 09:20-0500 Body weight 93.09 kg [facility] 06-17-2024 09:20-0500 Diastolic blood pressure 95 mm[Hg] [facility] 06-17-2024 09:20-0500 Heart rate 61 /min [facility] 06-17-2024 09:20-0500 Respiratory rate 12 /min [facility] 06-17-2024 09:20-0500 Systolic blood pressure 165 mm[Hg] [facility] 02-14-2024 08:49-0400 Body height 170.18 cm [facility] 02-14-2024 08:49-0400 Body mass index (BMI) [Ratio] 30.4 kg/m2 [facility] 02-14-2024 08:49-0400 Body weight 88.11 kg [facility] 02-14-2024 08:49-0400 Diastolic blood pressure 86 mm[Hg] [facility] 02-14-2024 08:49-0400 Heart rate 60 /min [facility] 02-14-2024 08:49-0400 Respiratory rate 12 /min [facility] 02-14-2024 08:49-0400 Systolic blood pressure 155 mm[Hg] [facility] 08-18-2023 08:30-0500 Body height 170.18 cm Deo Ball Other [employer] [facility] [email or web address] Other 08-18-2023 08:30-0500 Body mass index (BMI) [Ratio] 30.51 kg/m2 Deo Ball Other [employer] [facility] [email or web address] Other 08-18-2023 08:30-0500 Body weight 88.36 kg Deo Ball Other [employer] [facility] [email or web address] Other 08-18-2023 08:30-0500 Diastolic blood pressure 88 mm[Hg] Deo Ball Other [employer] Other 08-18-2023 08:30-0500 Respiratory rate 12 /min Deo Ball Other [employer] Other 08-18-2023 08:30-0500 Systolic blood pressure 139 mm[Hg] Deo Ball Other [employer] Other 06-06-2023 09:30-0400 Body height 170.18 cm Deo Ball Other [employer] Other 06-06-2023 09:30-0400 Body mass index (BMI) [Ratio] 29.35 kg/m2 Deo Ball Other [employer] Other 06-06-2023 09:30-0400 Body weight 85 kg Deo Ball Other [employer] Other 06-06-2023 09:30-0400 Diastolic blood pressure 89 mm[Hg] Deo Ball Other [employer] Other 06-06-2023 09:30-0400 Respiratory rate 12 /min Deo Ball Other [employer] Other 06-06-2023 09:30-0400 Systolic blood pressure 139 mm[Hg] Deo Ball Other [employer] Other 09-13-2022 09:30-0500 Body height 170.18 cm Deo Ball Other [employer] Other 09-13-2022 09:30-0500 Body mass index (BMI) [Ratio] 30.1 kg/m2 Deo Ball Other [employer] Other 09-13-2022 09:30-0500 Body weight 87.18 kg Deo Reina Other [employer] Other 09-13-2022 09:30-0500 Diastolic blood pressure 82 mm[Hg] Deo Reina Other [employer] Other 09-13-2022 09:30-0500 Respiratory rate 12 /min Deo Reina Other [employer] Other 09-13-2022 09:30-0500 Systolic blood pressure 124 mm[Hg] Deo Reina Other [employer] Other Encounters Encounter Date Encounter Type Care Provider Facility Start: 06-17-2024 End: 06-17-2024 ambulatory [facility] Work Phone: Start: 06-17-2024 End: 06-17-2024 Patient encounter procedure [facility] Work Phone: Start: 02-14-2024 End: 02-14-2024 ambulatory [facility] Work Phone: Start: 02-14-2024 End: 02-14-2024 Patient encounter procedure [facility] Phys[facility] Work Phone: Start: 08-18-2023 End: 08-18-2023 ambulatory Deo Reina Other [employer] Other Start: 08-18-2023 Encounter for genera l adult medical examination without abnormal findings Deo Reina [facility] Start: 08-18-2023 Periodic preventive med est patient 40-64yrs Deo Reina [facility] Start: 06-06-2023 End: 06-06-2023 ambulatory Deo Reina Other [facility] Other Start: 06-06-2023 Office outpatient vi sit 15 minutes Deo Reina [facility] Start: 04-19-2023 End: 04-19-2023 ambulatory Deo Reina Other [facility] Other Start: 04-19-2023 Telephone encounter [facility] [place] [facility] Start: 10-14-2022 End: 10-14-2022 ambulatory Deo Reina Other [facility] Other Start: 10-14-2022 Telephone encounter Deo [place] [facility] Start: 09-13-2022 End: 09-13-2022 ambulatory Deo Reina Other [facility] Other Start: 09-13-2022 Office outpatient vi sit 25 minutes Deo Reina [facility] Start: 08-29-2022 End: 08-29-2022 ambulatory Deo Reina Other [facility] Other Start: 08-29-2022 Telephone encounter Deo [place] [facility] Start: 03-01-2022 End: 03-02-[address] DEO REINA Facility:[facility] Start: 01-12-2022 Encounter for genera l adult medical examination without abnormal findings DR DEO REINA [facility] Start: 01-06-2022 Adult health examination Deo Reina Other [facility] Other Start: 01-06-2022 End: 01-07-[address] DEO REINA Facility:[facility] Start: 01-06-2022 End: 01-07-2022 Encounter for general adult medical examination without abnormal findings DR DEO REINA Facility:[facility] Procedures Date Procedure Procedure Detail Performing Clinician Start: 01-06-[address] JOE IN [place] Comment on above: Performed By: #### [facility] #### [facility] [address] [place] [address] Dr. Aidee Go Start: 03-27-2017 Hypertension screening Deo Reina Other Depression screening Stacey Reina Other Screening for malign ant neoplasm of prostate Deo Reina Other Plan of Treatment Date Care Activity Detail Author US Lower extremity vein - left [facility] Payers Date Payer Category Payer Unknown [id number] 1970 Unknown [id number] 1960 Unknown [id number] Blue [employer] Blue Shield [id number] Medicaid [place] [employer] [id number] Self-pay Self Pay [id number] Unknown O [id number] Social History Date Type Detail Facility Sex Assigned At [facility] Other Start: 03-25-2019 End: 03-25-2019 Tobacco smoking status NHIS Never smoked tobacco (finding) [facility] Start: 1970 Sex Assigned At Male F [facility] Start: 06-17-2024 Sex Male (finding) [facility] Evaluation note 08-18-2023 Note Date & Type [...] Z12.5) KATHY refused. Symptoms tolerable, yearly PSA [facility] Other Evaluation note 06-06-2023 Note Date & [...] Stable mood, no change in medical treatment [facility] Other Evaluation note 04-19-2023 Note Date & Type Note Facility 04-19-2023 Evaluation note Encounter Date Diagnosis Assessment Notes Apr, Essential hypertension (ICD-10 - I10) [facility] Other Evaluation note 10-14-2022 Note Date & Type Note Facility 10-14-2022 Evaluation note Encounter Date Diagnosis Assessment Notes Oct, Recurrent major depressive disorder, in full remission (ICD-10 - F33.42) [facility] Other Evaluation note 09-13-2022 Note Date & [...] exercise for 30 minutes, 3-5 times weekly. 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 [employer] [facility]. provides no warranty or guarantee of the accuracy or completeness of information in this document.
[2024-07-23 09:22] VITALS: BMI 32.3
== END 2024-07-23 11:45 | disposition home or self-care (01) ==
PROVIDERS: PCP Internal Medicine; Visit Provider Physician Assistant
DX: I83.813 Varicose veins of bilateral lower extremities with pain (principal)
CPT/HCPCS: 93970; G0463

== ENCOUNTER 2024-07-24 11:32 | Outpatient (OUT) | payer OTHER, SELFPAY ==
--- OUTSIDE RECORDS SUMMARY | 2024-07-24 11:55 | XMS_ITS | CCD ---
Author Organization [facility] Care Team Providers Care Smoke Eater Name Role Phone ANSELMO, DR FELIX Primary [...] Cranberry preparation Drug Allergy 4 Unknown Reaction [facility] Shellfish (1 source) Shellfish Food Allergy 4 Unknown Reaction [facility] (1 source) Shellfish Drug allergy (disorder) [address] [facility] Repository (2 sources) patient allergy list reviewed by nurse or physicia Propensity to adverse reactions 7 Comment:Done [employer] Other (1 source) Cranberry preparation Drug Allergy 4 Unknown Reaction [facility] (1 source) Shellfish Allergy to substance 4 Unknown Reaction [facility] Medications Current Medications Medication Drug Class(es) Dates [...] 03-01-2022 BASO # 0.1 103/ul Normal 0.0-0.1 [facility] Comment on above: Performed By: #### C BC #### [facility] [address] [address] [address] Aidee Go Basophils/100 WBC (Bld) 0.9 % Normal 0.2-2.0 [facility] Comment on above: Performed By: #### C BC #### [facility] [address] [address] [address] Aidee Go EO # 0.1 103/ul Normal 0.0-0.7 [facility] Comment on above: Performed By: #### C BC #### [facility] [address] [place] [address] Dr. Aidee Go Eosinophils/100 WBC (Bld) 1.8 % Normal 0.9-7.0 [facility] Comment on above: Performed By: #### C BC #### [facility] [address] [place] [address] Dr. Aidee Go Erythrocyte distribution width (RBC) [Ratio] 15.0 % Normal 11.0-15.0 [facility] Comment on above: Performed By: #### C BC #### [facility] [address] [place] [address] Dr. Aidee Go Hematocrit (Bld) [Volume fraction] 37.9 % Critically low 42.0-54.0 [facility] Comment on above: Performed By: #### C BC #### [facility] [address] [place] [address] Dr. Aidee Go Hemoglobin (Bld) [Mass/Vol] 12.5 g/dL Critically low 14.0-18.0 [facility] Comment on above: Performed By: #### C BC #### [facility] [address] [place] [address] Dr. Aidee Go IG # 0.02 10e3/ul Normal 0.00-0.03 [facility] Comment on above: Performed By: #### C BC #### [facility] [address] [place] [address] Dr. Aidee Go IG % 0.4 % Normal 0.0-0.[address] [facility] Comment on above: Performed By: #### C BC #### [facility] [address] [place] [address] Dr. Aidee Go LYMPH # 1.8 103/ul Normal 1.2-3.8 [facility] Comment on above: Performed By: #### C BC #### [facility] [address] [place] [address] Dr. Aidee Go Lymphocytes/100 WBC (Bld) 31.7 % Normal 20.5-60.0 [facility] Comment on above: Performed By: #### C BC #### [facility] [address] [place] [address] Dr. Aidee Go MANUAL DIFF REQ NO Normal [facility] Comment on above: Performed By: #### C BC #### [facility] [address] [place] [address] Dr. Aidee Go MCH (RBC) [Entitic mass] 29.1 pg Normal 25.9-34.0 [facility] Comment on above: Performed By: #### C BC #### [facility] [address] [place] [address] Dr. Aidee Go MCHC (RBC) [Mass/Vol] 33.0 g/dL Normal 29.9-35.2 [facility] Comment on above: Performed By: #### C BC #### [facility] [address] [place] [address] Dr. Aidee Go MCV (RBC) [Entitic vol] 88.1 fL Normal 80.0-94.0 [facility] Comment on above: Performed By: #### C BC #### [facility] [address] [place] [address] Dr. Aidee Go MONO # 0.6 103/ul Normal 0.3-0.8 [facility] Comment on above: Performed By: #### C BC #### [facility] [address] [place] [address] Dr. Aidee Go Monocytes/100 WBC (Bld) 10.5 % Normal 1.7-12.0 [facility] Comment on above: Performed By: #### C BC #### [facility] [address] [place] [address] Dr. Aidee Go NEUT # 3.1 103/ul Normal 1.4-6.[address] [facility] Comment on above: Performed By: #### C BC #### [facility] [address] [place] [address] Dr. Aidee Go Neutrophils/100 WBC (Bld) 54.7 % Normal 43.0-75.0 [facility] Comment on above: Performed By: #### C BC #### [facility] [address] [address] [address] Aidee Go Platelet mean volume (Bld) [Entitic vol] 10.5 fL Normal 9.5-13.5 [facility] Comment on above: Performed By: #### C BC #### [facility] [address] [address] [address] Aidee Go PLT 144 103/ul Critically low 150-450 [facility] Comment on above: Performed By: #### C BC #### [facility] [address] [address] [address] Aidee Go RBC 4.30 106/ul Critically low 4.70-6.10 [facility] Comment on above: Performed By: #### C BC #### [facility] [address] [place] [address] Dr. Aidee Go WBC 5.6 103/ul Normal 4.0-11.0 [facility] Comment on above: Performed By: #### C BC #### [facility] [address] [place] [address] Dr. Aidee Go FERRITINon 03-01-2022 Ferritin [Mass/Vol] 25.0 ng/mL Critically low 26.0-388.0 [facility] Comment on above: Performed By: #### B 12FOL, FETIBC, FERR #### [facility] [address] [place] [address] Dr. Aidee Go IRON AND TIBCon 03-01-2022 % SATURATION 12.2 % Normal [facility] Comment on above: Performed By: #### B 12FOL, FETIBC, FERR #### [facility] [address] [address] [address] Aidee Go Iron [Mass/Vol] 48.0 ug/dL Critically low 65.0-175.0 [facility] Comment on above: Performed By: #### B 12FOL, FETIBC, FERR #### [facility] [address] [address] [address] Aidee Go TIBC DIRECT 395.0 ug/dL Normal 250.0-450.0 [facility] Comment on above: Performed By: #### B 12FOL, FETIBC, FERR #### [facility] [address] [place] [address] Dr. Aidee Go VIT B12 AND FOLATEon 022 Cobalamin (Vitamin B12) [Mass/Vol] 606.0 pg/mL Normal 193.0-986.0 [facility] Comment on above: Performed By: #### B 12FOL, FETIBC, FERR #### [facility] [address] [place] [address] Dr. Aidee Go FOLATE 18.40 ng/mL Normal 8.60-58.90 [facility] Comment on above: Performed By: #### B 12FOL, FETIBC, FERR #### [facility] [address] [place] [address] Dr. Aidee Go CBC AUTO DIFFon 01-06-2022 BASO # 0.1 103/ul Normal 0.0-0.1 [facility] Comment on above: Performed By: #### C BC #### [facility] [address] [place] [address] Dr. Aidee Go Basophils/100 WBC (Bld) 1.0 % Normal 0.2-2.0 [facility] Comment on above: Performed By: #### C BC #### [facility] [address] [place] [address] Dr. Aidee Go EO # 0.2 103/ul Normal 0.0-0.7 [facility] Comment on above: Performed By: #### C BC #### [facility] [address] [place] [address] Dr. Aidee Go Eosinophils/100 WBC (Bld) 4.5 % Normal 0.9-7.[address] [facility] Comment on above: Performed By: #### C BC #### [facility] [address] [place] [address] Dr. Aidee Go Erythrocyte distribution width (RBC) [Ratio] 15.0 % Normal 11.0-15.0 [facility] Comment on above: Performed By: #### C BC #### [facility] [address] [place] [address] Dr. Aidee Go Hematocrit (Bld) [Volume fraction] 38.6 % Critically low 42.0-54.0 [facility] Comment on above: Performed By: #### C BC #### [facility] [address] [place] [address] Dr. Aidee Go Hemoglobin (Bld) [Mass/Vol] 12.2 g/dL Critically low 14.0-18.0 [facility] Comment on above: Performed By: #### C BC #### [facility] [address] [place] [address] Dr. Aidee Go IG # 0.01 10e3/ul Normal 0.00-0.03 [facility] Comment on above: Performed By: #### C BC #### [facility] [address] [place] [address] Dr. Aidee Go IG % 0.2 % Normal 0.0-0.5 [facility] Comment on above: Performed By: #### C BC #### [facility] [address] [place] [address] Dr. Aidee Go LYMPH # 1.4 103/ul Normal 1.2-3.8 [facility] Comment on above: Performed By: #### C BC #### [facility] [address] [place] [address] Dr. Aidee Go Lymphocytes/100 WBC (Bld) 29.2 % Normal 20.5-60.0 [facility] Comment on above: Performed By: #### C BC #### [facility] [address] [place] [address] Dr. Aidee Go MANUAL DIFF REQ NO Normal [facility] Comment on above: Performed By: #### C BC #### [facility] [address] [place] [address] Dr. Aidee Go MCH (RBC) [Entitic mass] 28.2 pg Normal 25.9-34.0 [facility] Comment on above: Performed By: #### C BC #### [facility] [address] [place] [address] Dr. Aidee Go MCHC (RBC) [Mass/Vol] 31.6 g/dL Normal 29.9-35.[address] [facility] Comment on above: Performed By: #### C BC #### [facility] [address] [place] [address] Dr. Aidee Go MCV (RBC) [Entitic vol] 89.1 fL Normal 80.0-94.[address] [facility] Comment on above: Performed By: #### C BC #### [facility] [address] [place] [address] Dr. Aidee Go MONO # 0.5 103/ul Normal 0.3-0.[address] [facility] Comment on above: Performed By: #### C BC #### [facility] [address] [place] [address] Dr. Aidee Go Monocytes/100 WBC (Bld) 10.1 % Normal 1.7-12.0 [facility] Comment on above: Performed By: #### C BC #### [facility] [address] [place] [address] Dr. Aidee Go NEUT # 2.7 103/ul Normal 1.4-6.5 [facility] Comment on above: Performed By: #### C BC #### [facility] [address] [place] [address] Dr. Aidee Go Neutrophils/100 WBC (Bld) 55.0 % Normal 43.0-75.[address] [facility] Comment on above: Performed By: #### C BC #### [facility] [address] [place] [address] Dr. Aidee Go Platelet mean volume (Bld) [Entitic vol] 10.3 fL Normal 9.5-13.[address] [facility] Comment on above: Performed By: #### C BC #### [facility] [address] [place] [address] Dr. Aidee Go PLT 145 103/ul Critically low 150-450 [facility] Comment on above: Performed By: #### C BC #### [facility] [address] [place] [address] Dr. Aidee Go RBC 4.33 106/ul Critically low 4.70-6.10 [facility] Comment on above: Performed By: #### C BC #### [facility] [address] [place] [address] Dr. Aidee Go WBC 4.9 103/ul Normal 4.0-11.0 [facility] Comment on above: Performed By: #### C BC #### [facility] [address] [place] [address] Dr. Aidee Go PROF 14(COMP METB)on 022 Albumin [Mass/Vol] 3.8 g/dL Normal 3.4-5.[address] [facility] Comment on above: Performed By: #### C MP #### [facility] [address] [place] [address] Dr. Aidee Go Albumin/Globulin [Mass ratio] 1.0 {ratio} Normal [facility] Comment on above: Performed By: #### C MP #### [facility] [address] [place] [address] Dr. Aidee Go ALP [Catalytic activity/Vol] 66 U/L Normal 46-116 [facility] Comment on above: Performed By: #### C MP #### [facility] [address] [place] [address] Dr. Aidee Go ALT [Catalytic activity/Vol] 58 U/L Normal 16-63 [facility] Comment on above: Performed By: #### C MP #### [facility] [address] [place] [address] Dr. Aidee Go Anion gap [Moles/Vol] 15.6 mmol/L Normal [facility] Comment on above: Performed By: #### C MP #### [facility] [address] [place] [address] Dr. Aidee Go AST [Catalytic activity/Vol] 44 U/L Critically high 15-37 [facility] Comment on above: Performed By: #### C MP #### [facility] [address] [place] [address] Dr. Aidee Go Bilirubin [Mass/Vol] 0.2 mg/dL Normal 0.2-1.0 [facility] Comment on above: Performed By: #### C MP #### [facility] [address] [place] [address] Dr. Aidee Go Calcium [Mass/Vol] 9.1 mg/dL Normal 8.5-10.[address] [facility] Comment on above: Performed By: #### C MP #### [facility] [address] [place] [address] Dr. Aidee Go Chloride [Moles/Vol] 101 mmol/L Normal 98-107 [facility] Comment on above: Performed By: #### C MP #### [facility] [address] [place] [address] Dr. Aidee Go CO2 [Moles/Vol] 24.8 mmol/L Normal 21.0-32.0 [facility] Comment on above: Performed By: #### C MP #### [facility] [address] [place] [address] Dr. Aidee Go Creatinine [Mass/Vol] 0.77 mg/dL Normal 0.70-1.[address] [facility] Comment on above: Performed By: #### C MP #### [facility] [address] [place] [address] Dr. Aidee Go EGFR-AF LIBERIAN >60 Normal >=60 [facility] Comment on above: Performed By: #### C MP #### [facility] [address] [place] [address] Dr. Aidee Go EGFR-NON AF LIBERIAN >60 Normal >=[address] [facility] Comment on above: Performed By: #### C MP #### [facility] [address] [place] [address] Dr. Aidee Go Globulin (S) [Mass/Vol] 3.8 g/dL Normal [facility] Comment on above: Performed By: #### C MP #### [facility] [address] [place] [address] Dr. Aidee Go Glucose [Mass/Vol] 103 mg/dL Normal 74-106 [facility] Comment on above: Performed By: #### C MP #### [facility] [address] [address] [address] Aidee Go Potassium [Moles/Vol] 4.4 mmol/L Normal 3.5-5.1 [facility] Comment on above: Performed By: #### C MP #### [facility] [address] [address] [address] Aidee Go Protein [Mass/Vol] 7.6 g/dL Normal 6.4-8.[address] [facility] Comment on above: Performed By: #### C MP #### [facility] [address] [address] [address] Aidee Go Sodium [Moles/Vol] 137 mmol/L Normal 136-[address] [facility] Comment on above: Performed By: #### C MP #### [facility] [address] [address] [address] Aidee Go Urea nitrogen [Mass/Vol] 9.0 mg/dL Normal 7.0-18.0 [facility] Comment on above: Performed By: #### C MP #### [facility] [address] [address] [address] Aidee Go Urea nitrogen/Creatinine [Mass ratio] 11.7 mg/mg Normal [facility] Comment on above: Performed By: #### C MP #### [facility] [address] [address] [address] Aidee Go ED Clinical Summaryon 2018 ED Clinical Summary [place] [id number] ED Clinical Summary Person Information Name: VIOLETTA MURRAY [place] Age: 48 Years : 1970 12:00 AM Sex: Male Language: PCP: NONE, XXXX Marital Status: Single Phone: [phone] Visit Id: Visit Reason: back pain Speciality: [...] AM Discharge Request 02/07/2019 3:45 AM ADDRESS: [address] [place], [place] [id number] [facility] DOC NOTES: MEDICAL INFORMATION: Prescriptions Given: Prescription Display orphenadrine (orphenadrine 100 mg ER Tab) 100 mg = 1 tab(s), Oral, BID, X 7 day(s), # 14 tab(s), Refills(s) 0 PATIENT EDUCATION INFORMATION: Instructions: Cryotherapy, Alxf-yt-Zxps; Back Pain, Adult, Neta-iu-Bugl Follow up: With: Address: When: Zain Cottrell [address] [place] [address] [facility] (0) Within 1 to 2 days Comments: Return to ED if symptoms worsen DIAGNOSIS: 1:Chronic back pain Normal [facility] ED Patient Education Noteon 02-07-2019 [...] Document Reviewed: 03/15/2012 ExitCare? Patient Information ?2015 [employer]. This information is not intended to replace [...] day. ? 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 [...] Document Reviewed: 11/25/2014 ExitCare? Patient Information ?2015 [employer]. This information is not intended to replace advice given to you by your health care provider. Make sure you discuss any questions you have with your health care provider. Normal [facility] ED Patient Summaryon 019 ED Patient Summary [address] [address] Patient Discharge Instructions Person Information Name: VIOLETTA MURRAY Age: 48 Years Arrival Date: 02/07/2019 3:38 AM Discharge Diagnosis: 1:Chronic back pain Primary Care Physician: LUC, XXXX Provider Information Primary Provider: Arlette Loomis DO Advanced Fountain Attendant:Luc The exam and treatment you received in the Emergency Department were for an urgent problem and are not intended as complete care. It is important that you follow up with a doctor, nurse practitioner, or physician?s stonecutter assistant for ongoing care. If your symptoms [...] Follow-up Instructions: With: Address: When: Zain Simba [address] [place] [address] [facility] (1) Within 1 to 2 days Comments: Return to ED if symptoms worsen In the event that this physician does not participate in your insurance network, please consult with your insurance company to find a nearby participating provider. Patient Education Materials: Cryotherapy, Ctkx-sg-Ytdi; Back Pain, Adult, Fhxp-mu-Tyym A MESSAGE TO ALL PATIENTS REGARDING OPIOIDS PRESCRIPTION OPIOIDS: WHAT YOU NEED TO KNOW Prescription opioids can be used to help relieve cfhcgsbz-bs-jporvd pain and are often prescribed following a [...] be struggling with addiction, tell your health regular senior care provider and ask for guidance or call [facility]?S National Helpline at 1-271-581-SFWH. m Source: [place] Department of Health and Human Services/Center for Disease Control & Prevention [facility] Medications Given: Medication Dose Route No medications found. Medication Information: New Medications Printed Prescriptions orphenadrine (orphenadrine 100 mg ER Tab) 1 Tabs By Mouth 2 times a day for 7 Days. Refills: 0. Comment: Pharmacy Information: Thank you for choosing [facility] Patient Education Materials: Cryotherapy Cryotherapy [...] Document Reviewed: 03/15/2012 ExitCare? Patient Information ?2015 [employer]. This information is not intended to replace [...] day. ? 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 [...] Document Reviewed: 11/25/2014 ExitCare? Patient Information ?2015 [employer]. This information is not intended to replace advice given to you by your health care provider. Make sure you discuss any questions you have with your health care provider. TREVOR Ahn MICHAEL J , have received the following patient education materials/instruction s and have verbalized understanding: Patient Education Materials: Cryotherapy, Bgoe-gw-Vqfr; Back Pain, Adult, Ohzq-ny-Lueq Follow-up Instructions: With: Address: When: Zain [place] [address] [facility] (1) Within 1 to 2 days Comments: Return to ED if symptoms worsen Prescriptions: [orphenadrine (orphenadrine 100 mg ER Tab)] Patient Signature Date Clinician/Nurse Signature Date 02/07/19 03:45:43 Normal [facility] Vital Signs Date Time Vital Sign Value Performing Clinician Facility 06-17-2024 09:20-0500 Body height 170.18 cm [facility] 06-17-2024 09:20-0500 Body mass index (BMI) [Ratio] 32.1 kg/m2 [facility] 06-17-2024 09:20-0500 Body weight 93.09 kg [facility] 06-17-2024 09:20-0500 Diastolic blood pressure 95 mm[Hg] [facility] 06-17-2024 09:20-0500 Heart rate 61 /min [facility] 06-17-2024 09:20-0500 Respiratory rate 12 /min [facility] 06-17-2024 09:20-0500 Systolic blood pressure 165 mm[Hg] [facility] 02-14-2024 08:49-0400 Body height 170.18 cm [facility] 02-14-2024 08:49-0400 Body mass index (BMI) [Ratio] 30.4 kg/m2 [facility] 02-14-2024 08:49-0400 Body weight 88.11 kg [facility] 02-14-2024 08:49-0400 Diastolic blood pressure 86 mm[Hg] [facility] 02-14-2024 08:49-0400 Heart rate 60 /min [facility] 02-14-2024 08:49-0400 Respiratory rate 12 /min [facility] 02-14-2024 08:49-0400 Systolic blood pressure 155 mm[Hg] [facility] 08-18-2023 08:30-0500 Body height 170.18 cm Deo Ball Other [facility] Other 08-18-2023 08:30-0500 Body mass index (BMI) [Ratio] 30.51 kg/m2 Deo Ball Other [facility] Other 08-18-2023 08:30-0500 Body weight 88.36 kg Deo Ball Other [facility] Other 08-18-2023 08:30-0500 Diastolic blood pressure 88 mm[Hg] Deo Ball Other [employer] Other 08-18-2023 08:30-0500 Respiratory rate 12 /min Deo Ball Other [employer] Other 08-18-2023 08:30-0500 Systolic blood pressure 139 mm[Hg] Deo Ball Other [employer] Other 06-06-2023 09:30-0400 Body height 170.18 cm Deo Ball Other [employer] Other 06-06-2023 09:30-0400 Body mass index (BMI) [Ratio] 29.35 kg/m2 Deo Ball Other [employer] Other 06-06-2023 09:30-0400 Body weight 85 kg Deo Ball Other [employer] Other 06-06-2023 09:30-0400 Diastolic blood pressure 89 mm[Hg] Deo Ball Other [employer] Other 06-06-2023 09:30-0400 Respiratory rate 12 /min Deo Ball Other [employer] Other 06-06-2023 09:30-0400 Systolic blood pressure 139 mm[Hg] Deo Ball Other [employer] Other 09-13-2022 09:30-0500 Body height 170.18 cm Deo Ball Other [employer] Other 09-13-2022 09:30-0500 Body mass index (BMI) [Ratio] 30.1 kg/m2 Deo Ball Other [employer] Other 09-13-2022 09:30-0500 Body weight 87.18 kg Deo Reina Other [employer] Other 09-13-2022 09:30-0500 Diastolic blood pressure 82 mm[Hg] Deo Reina Other [employer] Other 09-13-2022 09:30-0500 Respiratory rate 12 /min Deo Reina Other [employer] Other 09-13-2022 09:30-0500 Systolic blood pressure 124 mm[Hg] Deo Reina Other [employer] Other Encounters Encounter Date Encounter Type Care Provider Facility Start: 06-17-2024 End: 06-17-2024 ambulatory [facility] Work Phone: Start: 06-17-2024 End: 06-17-2024 Patient encounter procedure [facility] Physician [facility] Work Phone: Start: 02-14-2024 End: 02-14-2024 ambulatory [facility] Work Phone: Start: 02-14-2024 End: 02-14-2024 Patient encounter procedure [facility] Physician [facility] Work Phone: Start: 08-18-2023 End: 08-18-2023 ambulatory Deo Reina Other [employer] Other Start: 08-18-2023 Encounter for genera l adult medical examination without abnormal findings Deo Reina [facility] Start: 08-18-2023 Periodic preventive med est patient 40-64yrs Deo Reina [facility] Start: 06-06-2023 End: 06-06-2023 ambulatory Deo Reina Other [facility] Other Start: 06-06-2023 Office outpatient vi sit 15 minutes Deo Reina [facility] Start: 04-19-2023 End: 04-19-2023 ambulatory Deo Reina Other [facility] Other Start: 04-19-2023 Telephone encounter Deo [place] [facility] Start: 10-14-2022 End: 10-14-2022 ambulatory Deo Reina Other [facility] Other Start: 10-14-2022 Telephone encounter Deo [place] [facility] Start: 09-13-2022 End: 09-13-2022 ambulatory Deo Reina Other [facility] Other Start: 09-13-2022 Office outpatient vi sit 25 minutes Deo Reina [facility] Start: 08-29-2022 End: 08-29-2022 ambulatory Deo Reina Other [facility] Other Start: 08-29-2022 Telephone encounter Deo [place] [facility] Start: 03-01-2022 End: 03-02-[address] DEO REINA Facility:[facility] Start: 01-12-2022 Encounter for genera l adult medical examination without abnormal findings DR DEO REINA [facility] Start: 01-06-2022 Adult health examination Deo Reina Other [facility] Other Start: 01-06-2022 End: 01-07-[address] DEO REINA Facility:[facility] Start: 01-06-2022 End: 01-07-2022 Encounter for general adult medical examination without abnormal findings DR DEO REINA Facility:[facility] Procedures Date Procedure Procedure Detail Performing Clinician Start: 01-06-[address] JOE IN [place] Comment on above: Performed By: #### [facility] #### [facility] [address] [place] [address] Dr. Aidee Go Start: 03-27-2017 Hypertension screening Deo Reina Other Depression screening Stacey Reina Other Screening for malign ant neoplasm of prostate Deo Reina Other Plan of Treatment Date Care Activity Detail Author US Lower extremity vein - left [facility] Payers Date Payer Category Payer Unknown [id number] 1970 Unknown [id number] 1960 Unknown [id number] Blue Cross Blue Shield [id number] Medicaid [place] Advant[employer] [id number] Self-pay Self Pay [id number] Unknown O [id number] Social History Date Type Detail Facility Sex Assigned At [facility] Other Start: 03-25-2019 End: 03-25-2019 Tobacco smoking status NHIS Never smoked tobacco (finding) [facility] Start: 1970 Sex Assigned At Male F [facility] Start: 06-17-2024 Sex Male (finding) [facility] Evaluation note 08-18-2023 Note Date [...] Z12.5) KATHY refused. Symptoms tolerable, yearly PSA [facility] Other Evaluation note 06-06-2023 Note Date & [...] Stable mood, no change in medical treatment [facility] Other Evaluation note 04-19-2023 Note Date & Type Note Facility 04-19-2023 Evaluation note Encounter Date Diagnosis Assessment Notes Apr, Essential hypertension (ICD-10 - I10) [facility] Other Evaluation note 10-14-2022 Note Date & Type Note Facility 10-14-2022 Evaluation note Encounter Date Diagnosis Assessment Notes Oct, Recurrent major depressive disorder, in full remission (ICD-10 - F33.42) [facility] Other Evaluation note 09-13-2022 Note Date & [...] exercise for 30 minutes, 3-5 times weekly. 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 [employer] [facility]. provides no warranty or guarantee of the accuracy or completeness of information in this document.
== END 2024-07-24 11:33 | disposition home or self-care (01) ==
LOC: WC 11:33
PROVIDERS: PCP Internal Medicine; Visit Provider Physician Assistant
DX: I87.332 Chronic venous hypertension (idiopathic) with ulcer and inflammation of left lower extremity (principal); L97.821 Non-pressure chronic ulcer of other part of left lower leg limited to breakdown of skin
CPT/HCPCS: G0463

== ENCOUNTER 2024-07-29 12:00 | Outpatient (RCR) | payer OTHER, SELFPAY | END 2024-08-06 14:33 | disposition home or self-care (01) | LOC: OT 12:00 | PROVIDERS: PCP Internal Medicine; Visit Provider Physician Assistant | DX: I89.0 Lymphedema, not elsewhere classified (principal) | CPT/HCPCS: 97110; 97140; 97166 ==

== ENCOUNTER 2024-08-07 09:33 | Outpatient (RCR) | payer OTHER, SELFPAY | END 2024-09-14 07:44 | disposition home or self-care (01) | LOC: OT 09:33 | PROVIDERS: PCP Internal Medicine; Visit Provider Physician Assistant | DX: I89.0 Lymphedema, not elsewhere classified (principal) | CPT/HCPCS: 97140; 97530 ==

== ENCOUNTER 2024-08-13 15:23 | Outpatient (OUT) | payer OTHER, SELFPAY | END 2024-08-13 15:24 | disposition home or self-care (01) | LOC: WC 15:24 | PROVIDERS: PCP Internal Medicine; Visit Provider Physician Assistant | DX: I87.332 Chronic venous hypertension (idiopathic) with ulcer and inflammation of left lower extremity (principal); L97.821 Non-pressure chronic ulcer of other part of left lower leg limited to breakdown of skin | CPT/HCPCS: G0463 ==

== ENCOUNTER 2025-04-24 10:09 | Outpatient (OUT) | payer OTHER, SELFPAY ==
--- OUTSIDE RECORDS SUMMARY | 2025-04-24 10:15 | XMS_ITS | Clinical Summary ---
Author Organization [facility] Address [id number] [address] [place] [address] Care Team Providers Care Nanny Caregiver Name Role Phone No Pcp, No Pcp Primary Care Provider Unavailabl e Allergies No known active allergies Medications sertraline (ZOLOFT) 100 mg tablet Take 150 mg by mouth daily. Active pantoprazole (PROTONIX) 40 mg EC tablet Take 40 mg by mouth daily. Active ARIPiprazole (ABILIFY) 5 mg tablet Take 5 mg by mouth daily. Active atenolol (TENORMIN) 50 mg tablet Take 50 mg by mouth daily. Active Social History Tobacco Use Types Packs/Day Years Used Date Smoking Tobacco: Never Smokeless Tobacco: Never Alcohol Use Standard Drinks/Week Comments Yes 4 (1 standard drink = 0.6 oz pur e alcohol) Childcare Answer Date Recorded Childcare Unknown 01/17/2019 Employment Answer Date Recorded Employment Unknown 01/17/2019 Purpose - Life Answer Date Recorded Purpose and direction in life Unknown Sex and Gender Information Value Date Recorded Sex Assigned at Not on file Legal Sex Male 4:42 PM EST Gender Identity Not on file Sexual Orientation Not on file Last Filed Vital Signs Vital Sign Reading Time Taken Comments Blood Pressure 165/100 08/30/2018 6:28 PM EST Pulse 82 08/30/2018 6:37 PM EST Temperature 37.1 C (98.7 F) 08/30/2018 4:45 PM EST Respiratory Rate 22 08/30/2018 6:37 PM EST Oxygen Saturation 100% 08/30/2018 6:37 PM EST Inhaled Oxygen Concentration - - Weight 73.4 kg (161 lb 14.4 oz) 08/30/2018 4:45 PM EST Height 170.2 cm (5' 7 ) 08/30/2018 4:45 PM EST Body Mass Index 25.36 08/30/2018 4:45 PM EST Plan of Treatment Not on file Medical Devices Not on file Insurance [facility] MEDICAID Care Teams Nanny Caregiver Relationship Specialty Start Date End Date No Pcp, No Pcp PRERNA Pierson [id number] PCP - General Family Medicine 08/30/18
--- OUTSIDE RECORDS SUMMARY | 2025-04-24 10:15 | XMS_ITS | Clinical Summary ---
Author Organization [facility] Address [address], [address] [place] [address] Care Team Providers Care Fuel Injection Servicer Name Role Phone Deo Briones DO Primary Care Provider [phone] Allergies No known active allergies Medications esomeprazole Magnesium (NEXIUM) 40 MG PACK Take 40 mg by mouth daily Active Phenylephrine HCl 10 MG TABS Take 10 mg by mouth every 4 hours Active Social History Tobacco Use Types Packs/Day Years Used Date Smoking Tobacco: Never Sex and Gender Information Value Date Recorded Sex Assigned at Not on file Legal Sex Male 12:25 PM EDT Gender Identity Not on file Sexual Orientation Not on file Last Filed Vital Signs Vital Sign Reading Time Taken Comments Blood Pressure 151/108 03/27/2015 3:31 PM EDT Pulse 97 03/27/2015 12:31 PM EDT Temperature 36.8 C (98.3 F) 03/27/2015 12:31 PM EDT Respiratory Rate 18 03/27/2015 12:31 PM EDT Oxygen Saturation 98% 03/27/2015 1:01 PM EDT Inhaled Oxygen Concentration - - Weight 66.2 kg (146 lb) 03/27/2015 12:31 PM EDT Height 167.6 cm (5' 6 ) 03/27/2015 12:31 PM EDT Body Mass Index 23.57 03/27/2015 12:31 PM EDT Plan of Treatment Not on file Care Teams Fuel Injection Servicer Relationship Specialty Start Date End Date Deo Briones DO PCP - General 03/27/15
--- OUTSIDE RECORDS SUMMARY | 2025-04-24 10:20 | XMS_ITS | CCD ---
Author Organization [facility] Care Team Providers Care Family Mediator Name Role Phone ANSELMO, DR FELIX Primary [...] Cranberry preparation Drug Allergy 4 Unknown Reaction [facility] Shellfish (1 source) Shellfish Food Allergy 4 Unknown Reaction [facility] (1 source) Shellfish Drug allergy (disorder) 7 [facility] Repository (2 sources) patient allergy list reviewed by nurse or physicia Propensity to adverse reactions 7 Comment:Done Pixifly Other (2 sources) Cranberry preparation Drug Allergy 4 Unknown Reaction [facility] (2 sources) Shellfish Allergy to substance 4 Unknown Reaction [facility] Medications Current Medications Medication Drug Class(es) Dates Sig (Normalized) Sig (Original) ARIPiprazole 10 mg oral tablet (14 sources) Atypical Antipsychotic Start: 12-11-2023 End: 06-24-2024 take 1 tablet by mouth once daily Aripiprazole 10 mg tablet Active 0 .ROUTE .COMPLEX June 24, 2024 6:55am TAKE 1 TABLET BY MOUTH ONCE DAILY Start: 03-25-2019 End: 12-11-2023 take 1 tablet by mouth at bedtime Aripiprazole 5 mg tablet Discontinued 5 MG PO Bedtime March 24, 2019 11:00pm December 11, 2023 4:58pm ARIPiprazole 10 MG take 1 tablet by mouth once daily Orally Once a day Active lisinopril 30 mg oral tablet (16 sources) Angiotensin Converting Enzyme Inhibitor Start: 07-18-2024 take 1 tablet by mouth once daily Lisinopril 30 mg tablet Active 30 MG PO Daily July 18, 2024 9:54am Start: 04-24-2024 End: 07-18-2024 take 1 tablet by mouth once daily Lisinopril 20 mg tablet Discontinued 0 .ROUTE .COMPLEX April 24, 2024 7:36am July 18, 2024 9:56am TAKE 1 TABLET BY MOUTH ONCE A [...] pantoprazole 40 mg delayed release oral tablet (12 sources) Proton Pump Inhibitor Start: 02-29-2024 take [...] 2024 10:37am sertraline 100 mg oral tablet (18 sources) Serotonin Reuptake Inhibitor Start: 02-29-2024 Sertraline [...] bedtime Active torsemide 10 mg oral tablet (6 sources) Loop Diuretic Start: 09-06-2024 take 1 tablet by mouth once daily Torsemide 10 mg tablet Active 0 .ROUTE .COMPLEX September 06, 2024 7:24am TAKE 1 TABLET BY MOUTH DAILY Start: 02-14-2024 End: 09-06-2024 take 1-2 tablets by mouth once daily Torsemide 10 mg tablet Discontinued 0 PO Daily 60 June 17, 2024 9:56am September 06, 2024 7:24am 1-2 tablets orally daily; Vitamin B Complex (1 source) Start: 03-27-2019 take 1 tablet by mouth once daily Vitamin B Complex Active 1 TAB PO Daily March 27, 2019 12:00am Vitamin B Complex tablet (2 sources) Start: 03-27-2019 take 1 tablet by mouth once daily Vitamin B Complex tablet Active 1 TAB PO Daily March 26, 2019 11:00pm Completed/Discontinued Medications Medication Drug Class(es) Dates Sig (Normalized) Sig (Original) ALPRAZolam 0.5 mg oral tablet (3 sources) Benzodiazepine Start: 7 End: 9 take 1 tablet by mouth three times daily as needed for anxiety Alprazolam (Xanax) 0.5 mg tablet Discontinued 0.5 MG PO Three times daily as needed for anxiety June 25, 2017 11:04am March 25, 2019 7:36am amLODIPine 2.5 mg oral tablet (3 sources) Dihydropyridine Calcium Channel Sari Start: 9 End: 4 take 1 tablet by mouth once daily Amlodipine 2.5 mg tablet Discontinued 2.5 MG PO Daily March 26, 2019 11:00pm February 14, 2024 8:17am benazepril hydrochloride 20 mg oral tablet (3 sources) Angiotensin Converting Enzyme Inhibitor Start: 7 End: 7 Benazepril 20 tablet Discontinued TABLET June 19, 2017 12:00am June 25, 2017 11:00am chlordiazePOXIDE hydrochloride 10 mg oral capsule (3 sources) Benzodiazepine Start: 7 End: 9 take 1 capsule by mouth three times daily Chlordiazepoxide Hcl 10 mg Capsule Discontinued 10 MG PO Three times daily June 25, 2017 12:00am March 25, 2019 7:37am Tapered down slowly while patient on 1 S. and eventually discontinue 24 hr metoprolol succinate 25 mg extended release oral tablet (3 sources) beta-Adrenergic Sari Start: 7 End: 9 [...] Resolved: 1 Chronic Coagulation and hemorrhagic disorders (6 sources) Thrombocytopenic disorder; Translations: [Thrombocytopenia, unspecified] 08-23-2023 [...] [Hyperglycemia, unspecified] Episodic Disorders of lipid metabolism (5 sources) Hypercholesterolemia; Translations: [Pure hypercholesterolemia, unspecified] 02-11-2024 Chronic Epilepsy; convulsions (4 sources) Generalized convulsive epilepsy; 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] Onset: 5 02-11-2024 Chronic Epilepsy; convulsions (1 source) Epilepsy; convulsions; 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] Onset: 5 Esophageal disorders (7 sources) Gastro-esophageal reflux disease with esophagitis; Translations: [Gastroesophageal reflux disease with esophagitis without hemorrhage] 02-11-2024 Chronic Essential hypertension (20 sources) Essential hypertension; Translations: [Essential (primary) hypertension] Chronic Fluid and electrolyte disorders (5 sources) Hyponatremia; Translations: [Hypo-osmolality and hyponatremia] Episodic Miscellaneous mental health disorders (2 sources) Somatoform disorder; 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] Onset: 6 Chronic Mood disorders (20 sources) Recurrent major depression in full remission; Translations: [Major depressive disorder, recurrent, in full remission] Onset: 7 Chronic Mood disorders (1 source) Mood disorders; Translations: [Major depressive disorder, recurrent episode, moderate] Onset: 7 Other connective tissue disease (2 sources) Swelling of left lower limb; Translations: [Other specified soft tissue disorders] 06-17-2024 Episodic Other diseases of veins and lymphatics (7 sources) Postthrombotic syndrome; 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] Onset: 7 02-14-2024 Chronic Other diseases of veins and lymphatics (2 sources) Lymphedema due to venous disease; Translations: [Lymphedema, not elsewhere classified] 06-14-2024 Chronic Other diseases of veins and lymphatics (3 sources) Lymphedema, not elsewhere classified; Translations: [Other lymphedema] 06-17-2024 Chronic Other diseases of veins and lymphatics (4 sources) Postthrombotic syndrome without complications of unspecified extremity; Translations: [Postphlebetic syndrome without complications] 06-17-2024 Chronic Other diseases of veins and lymphatics (1 source) Chronic peripheral venous hypertension; Translations: [Chronic venous hypertension (idiopathic) with ulcer and inflammation of left lower extremity] 06-17-2024 Chronic Other diseases of veins and lymphatics (2 sources) Chronic venous hypertension (idiopathic) with ulcer and inflammation of left lower extremity; Translations: [Chronic venous hypertension with ulcer and inflammation] 06-17-2024 Chronic Other diseases of veins and lymphatics (11 sources) Peripheral venous insufficiency; Translations: [Venous insufficiency (chronic) (peripheral)] Onset: 5 Episodic Other diseases of veins and lymphatics (5 sources) Venous insufficiency (chronic) (peripheral); Translations: [Venous (peripheral) insufficiency, unspecified] Episodic Other diseases of veins and lymphatics (3 sources) Venous insufficiency of leg; Translations: [Venous [...] conditions (not mental disorders or infectious disease) (11 sources) Prostate specific antigen measurement; Translations: [Encounter for screening for malignant neoplasm of prostate] Episodic Comment on above: PSA: 2021 Phlebitis; thrombophlebitis and thromboembolism (17 sources) H/O: Deep vein thrombosis; Translations: [Personal history of other venous thrombosis and embolism] Onset: 5 Episodic Residual codes; unclassified (5 sources) Personal history of other specified conditions; Translations: [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 Aidee Go Basophils/100 WBC (Bld) 0.9 % Normal 0.2-2.0 [facility] Comment on above: Performed By: #### C BC #### [facility] [address] [address] [address] Aidee Go EO # 0.1 103/ul Normal 0.0-0.7 [facility] Comment on above: Performed By: #### C BC #### [facility] [address] [address] [address] Aidee Go Eosinophils/100 WBC (Bld) 1.8 % Normal 0.9-7.0 [facility] Comment on above: Performed By: #### C BC #### [facility] [address] [address] [address] Aidee Go Erythrocyte distribution width (RBC) [Ratio] 15.0 % Normal 11.0-15.0 [facility] Comment on above: Performed By: #### C BC #### [facility] [address] [address] [address] Aidee Go Hematocrit (Bld) [Volume fraction] 37.9 % Critically low 42.0-54.0 [facility] Comment on above: Performed By: #### C BC #### [facility] [address] [place] [address] Dr. Aidee Go Hemoglobin (Bld) [Mass/Vol] 12.5 g/dL Critically low 14.0-18.0 [facility] Comment on above: Performed By: #### C BC #### [facility] [address] [place] [address] Dr. Aidee Go IG # 0.02 10e3/ul Normal 0.00-0.03 [facility] Comment on above: Performed By: #### C BC #### [facility] [address] [place] [address] Dr. Aidee Go IG % 0.4 % Normal 0.0-0.5 [facility] Comment on above: Performed By: #### C BC #### [facility] [address] [place] [address] Dr. Aidee Go LYMPH # 1.8 103/ul Normal 1.2-3.8 [facility] Comment on above: Performed By: #### C BC #### [facility] [address] [place] [address] Dr. Aidee Go Lymphocytes/100 WBC (Bld) 31.7 % Normal 20.5-60.0 [facility] Comment on above: Performed By: #### C BC #### [facility] [address] [place] [address] Dr. Aidee Go MANUAL DIFF REQ NO Normal [facility] Comment on above: Performed By: #### C BC #### [facility] [address] [place] [address] Dr. Aidee Go MCH (RBC) [Entitic mass] 29.1 pg Normal 25.9-34.0 [facility] Comment on above: Performed By: #### C BC #### [facility] [address] [place] [address] Dr. Aidee Go MCHC (RBC) [Mass/Vol] 33.0 g/dL Normal 29.9-35.2 [facility] Comment on above: Performed By: #### C BC #### [facility] [address] [place] [address] Dr. Aidee Go MCV (RBC) [Entitic vol] 88.1 fL Normal 80.0-94.0 [facility] Comment on above: Performed By: #### C BC #### [facility] [address] [place] [address] Dr. Aidee Go MONO # 0.6 103/ul Normal 0.3-0.8 [facility] Comment on above: Performed By: #### C BC #### [facility] [address] [place] [address] Dr. Aidee Go Monocytes/100 WBC (Bld) 10.5 % Normal 1.7-12.0 [facility] Comment on above: Performed By: #### C BC #### [facility] [address] [place] [address] Dr. Aidee Go NEUT # 3.1 103/ul Normal 1.4-6.5 [facility] Comment on above: Performed By: #### C BC #### [facility] [address] [place] [address] Dr. Aidee Go Neutrophils/100 WBC (Bld) 54.7 % Normal 43.0-75.0 [facility] Comment on above: Performed By: #### C BC #### [facility] [address] [place] [address] Dr. Aidee Go Platelet mean volume (Bld) [Entitic vol] 10.5 fL Normal 9.5-13.5 [facility] Comment on above: Performed By: #### C BC #### [facility] [address] [place] [address] Dr. Aidee Go PLT 144 103/ul Critically low 150-450 [facility] Comment on above: Performed By: #### C BC #### [facility] [address] [place] [address] Dr. Aidee Go RBC 4.30 106/ul Critically low 4.70-6.10 [facility] Comment on above: Performed By: #### C BC #### [facility] [address] [place] [address] Dr. Aidee Go WBC 5.6 103/ul Normal 4.0-11.0 [facility] Comment on above: Performed By: #### C BC #### [facility] [address] [place] [address] Dr. Aidee Go FERRITINon 03-01-2022 Ferritin [Mass/Vol] 25.0 ng/mL Critically low 26.0-388.0 [facility] Comment on above: Performed By: #### B 12FOL, FETIBC, FERR #### [facility] [address] [place] [address] Dr. Aidee Go IRON AND TIBCon 03-01-2022 % SATURATION 12.2 % Normal [facility] Comment on above: Performed By: #### B 12FOL, FETIBC, FERR #### [facility] [address] [place] [address] Dr. Aidee Go Iron [Mass/Vol] 48.0 ug/dL Critically low 65.0-175.0 [facility] Comment on above: Performed By: #### B 12FOL, FETIBC, FERR #### [facility] [address] [place] [address] Dr. Aidee Go TIBC DIRECT 395.0 ug/dL Normal 250.0-450.0 [facility] Comment on above: Performed By: #### B 12FOL, FETIBC, FERR #### [facility] [address] [place] [address] Dr. Aidee Go VIT B12 AND FOLATEon 022 Cobalamin (Vitamin B12) [Mass/Vol] 606.0 pg/mL Normal 193.0-986.0 [facility] Comment on above: Performed By: #### B 12FOL, FETIBC, FERR #### [facility] [address] [place] [address] Dr. Aidee Go FOLATE 18.40 ng/mL Normal 8.60-58.90 [facility] Comment on above: Performed By: #### B 12FOL, FETIBC, FERR #### [facility] [address] [place] [address] Dr. Aidee Go CBC AUTO DIFFon 01-06-2022 BASO # 0.1 103/ul Normal 0.0-0.1 [facility] Comment on above: Performed By: #### C BC #### [facility] [address] [place] [address] Dr. Aidee Go Basophils/100 WBC (Bld) 1.0 % Normal 0.2-2.0 [facility] Comment on above: Performed By: #### C BC #### [facility] [address] [place] [address] Dr. Aidee Go EO # 0.2 103/ul Normal 0.0-0.7 [facility] Comment on above: Performed By: #### C BC #### [facility] [address] [place] [address] Dr. Aidee Go Eosinophils/100 WBC (Bld) 4.5 % Normal 0.9-7.0 [facility] Comment on above: Performed By: #### C BC #### [facility] [address] [place] [address] Dr. Aidee Go Erythrocyte distribution width (RBC) [Ratio] 15.0 % Normal 11.0-15.0 [facility] Comment on above: Performed By: #### C BC #### [facility] [address] [place] [address] Dr. Aidee Go Hematocrit (Bld) [Volume fraction] 38.6 % Critically low 42.0-54.0 [facility] Comment on above: Performed By: #### C BC #### [facility] [address] [place] [address] Dr. Aidee Go Hemoglobin (Bld) [Mass/Vol] 12.2 g/dL Critically low 14.0-18.0 [facility] Comment on above: Performed By: #### C BC #### [facility] [address] [place] [address] Dr. Aidee Go IG # 0.01 10e3/ul Normal 0.00-0.03 [facility] Comment on above: Performed By: #### C BC #### [facility] [address] [place] [address] Dr. Aidee Go IG % 0.2 % Normal 0.0-0.5 [facility] Comment on above: Performed By: #### C BC #### [facility] [address] [place] [address] Dr. Aidee Go LYMPH # 1.4 103/ul Normal 1.2-3.8 [facility] Comment on above: Performed By: #### C BC #### [facility] [address] [place] [address] Dr. Aidee Go Lymphocytes/100 WBC (Bld) 29.2 % Normal 20.5-60.0 [facility] Comment on above: Performed By: #### C BC #### [facility] [address] [place] [address] Dr. Aidee Go MANUAL DIFF REQ NO Normal [facility] Comment on above: Performed By: #### C BC #### [facility] [address] [place] [address] Dr. Aidee Go MCH (RBC) [Entitic mass] 28.2 pg Normal 25.9-34.0 [facility] Comment on above: Performed By: #### C BC #### [facility] [address] [place] [address] Dr. Aidee Go MCHC (RBC) [Mass/Vol] 31.6 g/dL Normal 29.9-35.2 [facility] Comment on above: Performed By: #### C BC #### [facility] [address] [place] [address] Dr. Aidee Go MCV (RBC) [Entitic vol] 89.1 fL Normal 80.0-94.0 [facility] Comment on above: Performed By: #### C BC #### [facility] [address] [place] [address] Dr. Aidee Go MONO # 0.5 103/ul Normal 0.3-0.8 [facility] Comment on above: Performed By: #### C BC #### [facility] [address] [place] [address] Dr. Aidee Go Monocytes/100 WBC (Bld) 10.1 % Normal 1.7-12.0 [facility] Comment on above: Performed By: #### C BC #### [facility] [address] [place] [address] Dr. Aidee Go NEUT # 2.7 103/ul Normal 1.4-6.5 [facility] Comment on above: Performed By: #### C BC #### [facility] [address] [address] [address] Aidee Go Neutrophils/100 WBC (Bld) 55.0 % Normal 43.0-75.0 [facility] Comment on above: Performed By: #### C BC #### [facility] [address] [address] [address] Aidee Go Platelet mean volume (Bld) [Entitic vol] 10.3 fL Normal 9.5-13.5 [facility] Comment on above: Performed By: #### C BC #### [facility] [address] [address] [address] Aidee Go PLT 145 103/ul Critically low 150-450 [facility] Comment on above: Performed By: #### C BC #### [facility] [address] [address] [address] Aidee Go RBC 4.33 106/ul Critically low 4.70-6.10 [facility] Comment on above: Performed By: #### C BC #### [facility] [address] [address] [address] Aidee Go WBC 4.9 103/ul Normal 4.0-11.0 [facility] Comment on above: Performed By: #### C BC #### [facility] [address] [address] [address] Aidee Go PROF 14(COMP METB)on 022 Albumin [Mass/Vol] 3.8 g/dL Normal 3.4-5.0 [facility] Comment on above: Performed By: #### C MP #### [facility] [address] [address] [address] Aidee Go Albumin/Globulin [Mass ratio] 1.0 {ratio} Normal [facility] Comment on above: Performed By: #### C MP #### [facility] [address] [address] [address] Aidee Go ALP [Catalytic activity/Vol] 66 U/L Normal 46-116 [facility] Comment on above: Performed By: #### C MP #### [facility] [address] [address] [address] Aidee Go ALT [Catalytic activity/Vol] 58 U/L Normal 16-63 [facility] Comment on above: Performed By: #### C MP #### [facility] [address] [address] [address] Aidee Go Anion gap [Moles/Vol] 15.6 mmol/L Normal [facility] Comment on above: Performed By: #### C MP #### [facility] [address] [address] [address] Aidee Go AST [Catalytic activity/Vol] 44 U/L Critically high 15-37 [facility] Comment on above: Performed By: #### C MP #### [facility] [address] [address] [address] Aidee Go Bilirubin [Mass/Vol] 0.2 mg/dL Normal 0.2-1.0 [facility] Comment on above: Performed By: #### C MP #### [facility] [address] [address] [address] Aidee Go Calcium [Mass/Vol] 9.1 mg/dL Normal 8.5-10.1 [facility] Comment on above: Performed By: #### C MP #### [facility] [address] [address] [address] Aidee Go Chloride [Moles/Vol] 101 mmol/L Normal 98-107 [facility] Comment on above: Performed By: #### C MP #### [facility] [address] [address] [address] Aidee Go CO2 [Moles/Vol] 24.8 mmol/L Normal 21.0-32.0 [facility] Comment on above: Performed By: #### C MP #### [facility] [address] [address] [address] Aidee Go Creatinine [Mass/Vol] 0.77 mg/dL Normal 0.70-1.30 [facility] Comment on above: Performed By: #### C MP #### [facility] [address] [address] [address] Aidee Go EGFR-AF PORTUGUESE >60 Normal >=60 [facility] Comment on above: Performed By: #### C MP #### [facility] [address] [address] [address] Aidee Go EGFR-NON AF PORTUGUESE >60 Normal >=60 [facility] Comment on above: Performed By: #### C MP #### [facility] [address] [address] [address] Aidee Go Globulin (S) [Mass/Vol] 3.8 g/dL Normal [facility] Comment on above: Performed By: #### C MP #### [facility] [address] [address] [address] Aidee Go Glucose [Mass/Vol] 103 mg/dL Normal 74-106 [facility] Comment on above: Performed By: #### C MP #### [facility] [address] [address] [address] Aidee Go Potassium [Moles/Vol] 4.4 mmol/L Normal 3.5-5.1 [facility] Comment on above: Performed By: #### C MP #### [facility] [address] [place] [address] Dr. Aidee Go Protein [Mass/Vol] 7.6 g/dL Normal 6.4-8.2 [facility] Comment on above: Performed By: #### C MP #### [facility] [address] [address] [address] Aidee Go Sodium [Moles/Vol] 137 mmol/L Normal 136-145 [facility] Comment on above: Performed By: #### C MP #### [facility] [address] [place] [address] Dr. Aidee Go Urea nitrogen [Mass/Vol] 9.0 mg/dL Normal 7.0-18.0 [facility] Comment on above: Performed By: #### C MP #### [facility] [address] [place] [address] Dr. Aidee Go Urea nitrogen/Creatinine [Mass ratio] 11.7 mg/mg Normal [facility] Comment on above: Performed By: #### C #### [facility] [address] [place] [address] Dr. Aidee Go ED Clinical Summaryon 2018 ED Clinical Summary [address] [place] [id number] ED Clinical Summary Person Information Name: VIOLETTA MURRAY/[place] Age: 48 Years : 1970 12:00 AM Sex: Male Language: PCP: NONE, XXXX Marital Status: Single Phone: [phone] Visit Id: Visit Reason: back pain Speciality: [...] AM Discharge Request 02/07/2019 3:45 AM ADDRESS: [address] [place] [address] DOC NOTES: MEDICAL INFORMATION: Prescriptions Given: Prescription Display orphenadrine (orphenadrine 100 mg ER Tab) 100 mg = 1 tab(s), Oral, BID, X 7 day(s), # 14 tab(s), Refills(s) 0 PATIENT EDUCATION INFORMATION: Instructions: Cryotherapy, Edtp-[id number]; Back Pain, Adult, Ctrc-rs-Byun Follow up: With: Address: When: Zain Coburn [place] [id number] [employer] (1) Within 1 to 2 days Comments: Return to ED if symptoms worsen DIAGNOSIS: 1:Chronic back pain Normal [facility] ED Patient Education Noteon [...] 10/15/2012 Document Reviewed: 03/15/2012 ExitCare? Patient Information ?2014 Campus Diaries. This information is not intended to replace [...] day. ? Do not sit, drive, or railroad crossing protection maintainer one place for more than 30 minutes. [...] Document Reviewed: 11/25/2014 ExitCare? Patient Information ?2015 [place], [place]. This information is not intended to replace advice given to you by your health care provider. Make sure you discuss any questions you have with your health care provider. Normal [facility] ED Patient Summaryon 019 ED Patient Summary [place] [id number] Patient Discharge Instructions Person Information Name: VIOLETTA MURRAY Age: 48 Years Arrival Date: 02/07/2019 3:38 AM Discharge Diagnosis: 1:Chronic back pain Primary Care Physician: NONE, XXXX Provider Information Primary Provider: Arlette Loomis DO Advanced Glove Cutter:Luc The exam and treatment you received in the Emergency Department were for an urgent problem and are not intended as complete care. It is important that you follow up with a doctor, nurse practitioner, or physician?s auction assistant for ongoing care. If your symptoms [...] Follow-up Instructions: With: Address: When: Zain Simba [address] [place], [place] [id number] [employer] (1) Within 1 to 2 days Comments: Return to ED if symptoms worsen In the event that this physician does not participate in your insurance network, please consult with your insurance company to find a nearby participating provider. Patient Education Materials: Cryotherapy, Kdpx-dp-Vora; Back Pain, Adult, Lvwh-ia-Woxl A MESSAGE TO ALL PATIENTS REGARDING OPIOIDS PRESCRIPTION OPIOIDS: WHAT YOU NEED TO KNOW Prescription opioids can be used to help relieve lleakfay-zm-upafvq pain and are often prescribed following a [...] be struggling with addiction, tell your health respiratory care practitioner and ask for guidance or call SAMHSA?S National Helpline at 2-697-555-QXKR. v Source: US Department of Health and Human Services/Center for Disease Control & Prevention [facility] Medications Given: Medication Dose Route No medications found. Medication Information: New Medications Printed Prescriptions orphenadrine (orphenadrine 100 mg ER Tab) 1 Tabs By Mouth 2 times a day for 7 Days. Refills: 0. Comment: Pharmacy Information: Thank you for choosing [facility] Patient Education Materials: Cryotherapy Cryotherapy is [...] Document Reviewed: 03/15/2012 ExitCare? Patient Information ?2015 [employer]. This information is not intended to replace [...] day. ? Do not sit, drive, or railroad crossing protection maintainer one place for more than 30 minutes. [...] Document Reviewed: 11/25/2014 ExitCare? Patient Information ?2015 [employer]. This information is not intended to replace advice given to you by your health care provider. Make sure you discuss any questions you have with your health care provider. TREVOR Ahn MICHAEL J , have received the following patient education materials/instruction s and have verbalized understanding: Patient Education Materials: Cryotherapy, Eewm-fc-Bwpy; Back Pain, Adult, Nula-bq-Ljwb Follow-up Instructions: With: Address: When: [place] [address] [employer] (199dresses Within 1 to 2 days Comments: Return to ED if symptoms worsen Prescriptions: [orphenadrine (orphenadrine 100 mg ER Tab)] Patient Signature Date Clinician/Nurse Signature Date 02/07/19 03:45:43 Normal [facility] Vital Signs Date Time Vital Sign Value Performing Clinician Facility 09-11-2024 10:57-0500 Body height 170.18 cm [facility] 09-11-2024 10:57-0500 Body mass index (BMI) [Ratio] 30.4 kg/m2 [facility] 09-11-2024 10:57-0500 Body weight 88.11 kg [facility] 09-11-2024 10:57-0500 Diastolic blood pressure 80 mm[Hg] [facility] 09-11-2024 10:57-0500 Heart rate 57 /min [facility] 09-11-2024 10:57-0500 Respiratory rate 12 /min [facility] 09-11-2024 10:57-0500 Systolic blood pressure 135 mm[Hg] [facility] 07-18-2024 09:37-0500 Body height 170.18 cm [facility] 07-18-2024 09:37-0500 Body mass index (BMI) [Ratio] 31.4 kg/m2 [facility] 07-18-2024 09:37-0500 Body weight 90.88 kg [facility] 07-18-2024 09:37-0500 Diastolic blood pressure 89 mm[Hg] [facility] 07-18-2024 09:37-0500 Heart rate 56 /min [facility] 07-18-2024 09:37-0500 Respiratory rate 12 /min [facility] 07-18-2024 09:37-0500 Systolic blood pressure 139 mm[Hg] [facility] 06-17-2024 10:02-0500 Body mass index (BMI) [Ratio] 32.1 kg/m2 [facility] 06-17-2024 09:20-0500 Body height 170.18 cm [facility] 06-17-2024 09:20-0500 Body mass index (BMI) [Ratio] 32.1 kg/m2 [facility] 06-17-2024 09:20-0500 Body weight 93.09 kg [facility] 06-17-2024 09:20-0500 Diastolic blood pressure 95 mm[Hg] [facility] 06-17-2024 09:20-0500 Heart rate 61 /min [facility] 06-17-2024 09:20-0500 Respiratory rate 12 /min [facility] 06-17-2024 09:20-0500 Systolic blood pressure 165 mm[Hg] [facility] 02-14-2024 08:49-0400 Body height 170.18 cm [facility] 02-14-2024 08:49-0400 Body mass index (BMI) [Ratio] 30.4 kg/m2 [facility] 02-14-2024 08:49-0400 Body weight 88.11 kg [facility] 02-14-2024 08:49-0400 Diastolic blood pressure 86 mm[Hg] [facility] 02-14-2024 08:49-0400 Heart rate 60 /min [facility] 02-14-2024 08:49-0400 Respiratory rate 12 /min [facility] 02-14-2024 08:49-0400 Systolic blood pressure 155 mm[Hg] [facility] 08-18-2023 08:30-0500 Body height 170.18 cm Deo Ball Other [facility] Other 08-18-2023 08:30-0500 Body mass index (BMI) [Ratio] 30.51 kg/m2 Deo Ball Other [facility] Other 08-18-2023 08:30-0500 Body weight 88.36 kg Deo Ball Other [facility] Other 08-18-2023 08:30-0500 Diastolic blood pressure 88 mm[Hg] Deo Ball Other [facility] Other 08-18-2023 08:30-0500 Respiratory rate 12 /min Deo Ball Other [facility] Other 08-18-2023 08:30-0500 Systolic blood pressure 139 mm[Hg] Deo Ball Other [facility] Other 06-06-2023 09:30-0400 Body height 170.18 cm Deo Ball Other [facility] Other 06-06-2023 09:30-0400 Body mass index (BMI) [Ratio] 29.35 kg/m2 Deo Ball Other [facility] Other 06-06-2023 09:30-0400 Body weight 85 kg Deo Ball Other [facility] Other 06-06-2023 09:30-0400 Diastolic blood pressure 89 mm[Hg] Deo Ball Other [facility] Other 06-06-2023 09:30-0400 Respiratory rate 12 /min Deo Ball Other [facility] Other 06-06-2023 09:30-0400 Systolic blood pressure 139 mm[Hg] Deo Ball Other [facility] Other 09-13-2022 09:30-0500 Body height 170.18 cm Deo Ball Other [facility] Other 09-13-2022 09:30-0500 Body mass index (BMI) [Ratio] 30.1 kg/m2 Deo Ball Other [facility] Other 09-13-2022 09:30-0500 Body weight 87.18 kg Deo Ball Other [facility] Other 09-13-2022 09:30-0500 Diastolic blood pressure 82 mm[Hg] Deo Ball Other [facility] Other 09-13-2022 09:30-0500 Respiratory rate 12 /min Deo Ball Other [facility] Other 09-13-2022 09:30-0500 Systolic blood pressure 124 mm[Hg] Deo Ball Other [facility] Other Encounters Encounter Date Encounter Type Care Provider Facility Start: 09-11-2024 End: 09-11-2024 ambulatory [facility] Work Phone: Start: 09-11-2024 End: 09-11-2024 Encounter for general adult medical examination without abnormal findings [facility] Start: 09-11-2024 End: 09-11-2024 Patient encounter procedure [facility] Work Phone: Start: 08-17-2024 Patient encounter status [facility] Start: 07-24-2024 Non-patient / Non-visit [facility] Work Phone: Start: 07-18-2024 End: 07-18-2024 Patient encounter procedure [facility] Work Phone: Start: 06-17-2024 End: 06-17-2024 ambulatory [facility] Work Phone: Start: 06-17-2024 End: 06-17-2024 Patient encounter procedure [facility] Work Phone: Start: 02-14-2024 End: 02-14-2024 ambulatory [facility] Work Phone: Start: 02-14-2024 End: 02-14-2024 Patient encounter procedure [facility] Work Phone: Start: 08-18-2023 End: 08-18-2023 ambulatory Deo Reina Other [facility] Other Start: 08-18-2023 Encounter for genera l adult medical examination without abnormal findings Deo Reina [facility] Start: 08-18-2023 Periodic preventive med est patient 40-64yrs Deo Reina [facility] Start: 06-06-2023 End: 06-06-2023 ambulatory Deo Reina Other [facility] Other Start: 06-06-2023 Office outpatient vi sit 15 minutes Deo Reina [facility] Start: 04-19-2023 End: 04-19-2023 ambulatory Deo Reina Other [facility] Other Start: 04-19-2023 Telephone encounter [facility] Start: 10-14-2022 End: 10-14-2022 ambulatory Deo Anselmo Other [facility] Other Start: 10-14-2022 Telephone encounter Deo Reina [facility] Start: 09-13-2022 End: 09-13-2022 ambulatory Deo Anselmo Other [facility] Other Start: 09-13-2022 Office outpatient vi sit 25 minutes Deo Ball [facility] Start: 08-29-2022 End: 08-29-2022 ambulatory Deo Anselmo Other [facility] Other Start: 08-29-2022 Telephone encounter [facility] Start: 03-01-2022 End: 03-02-[address] DEO REINA Facility:[facility] Start: 01-12-2022 Encounter for genera l adult medical examination without abnormal findings DR DEO REINA [facility] Start: 01-06-2022 Adult health examination Deo Reina Other [employer] Other Start: 01-06-2022 End: 01-07-[address] DEO REINA Facility:[facility] Start: 01-06-2022 End: 01-07-2022 Encounter for general adult medical examination without abnormal findings DR DEO REINA Facility:[facility] Procedures Date Procedure Procedure Detail Performing Clinician Start: 01-06-[address] JOE [place] Comment on above: Performed By: #### P [facility] #### [facility] [address] [place] [address] Dr. Aidee Go Start: 03-27-2017 Hypertension screening Deo Reina Other Depression screening Stacey Reina Other Screening for malign ant neoplasm of prostate Deo Reina Other Plan of Treatment Date Care Activity Detail Author Comprehensive metabo lic 1999 panel - Serum or Plasma [facility] enter US Lower extremity vein - left [facility] Payers Date Payer Category Payer Unknown [id number] 1970 Unknown [id number] 1960 Unknown [id number] Blue Cross Blue Shield [id number] Medicaid [place] [employer] [id number] 301 [id number] Self-pay Self Pay [id number] Unknown [facility] [id number] Social History Date Type Detail Facility Sex Assigned At [employer] Other Start: 03-25-2019 End: 03-25-2019 Tobacco smoking status NHIS Never smoked tobacco (finding) [facility] Start: 1970 Sex Assigned At Male F [facility] Start: 06-17-2024 End: 09-11-2024 Sex Male (finding) [facility] Evaluation note 06-17-2024 Note Date & Type Note Facility 06-17-2024 Evaluation note Diagnosis Onset Date Resolution Chronic venous hypertension (idiopathic) with ulcer and inflammation of lef acute June 9:10am Lymphedema due to venous disease acute June 17, 2024 9:10am Post-phlebitic syndrome acute N ovember 2023 9:10am HTN (hypertension) chronic Novemb er 2023 9:10am Chronic venous hypertension (idiopathic) with ulcer and inflammation of lef acute July 9:28am Lymphedema due to venous disease acute July 18, 2024 9:28am Post-phlebitic syndrome acute D ecember 2023 9:28am HTN (hypertension) chronic Decemb er 2023 9:28am Chronic venous insufficiency of lower extremity acute September 11, 2024 10:51am GERD (gastroesophageal reflux disease) acute September 11, 2024 10:51am History of seizure due to alcohol withdrawal acute September 11, 2024 10:51am Hypercholesterolemia acute 2024 10:51am Major depression acute September 11, 2024 10:51am Post-phlebitic syndrome acute F ebruary 2024 10:51am Screening PSA (prostate specific antigen) acute September 11, 2024 10:51am Thrombocytopenia acute September 11, 2024 10:51am Wellness examination acute 2024 10:51am HTN (hypertension) chronic Februa ry 2024 10:51am Screening for colon cancer noneactiv e September 11, 2024 10:51am [facility] Work Phone: Evaluation note 08-18-2023 Note Date & Type [...] Z12.5) KATHY refused. Symptoms tolerable, yearly PSA [facility] Other Evaluation note 06-06-2023 Note Date & [...] Stable mood, no change in medical treatment [facility] Other Evaluation note 04-19-2023 Note Date & Type Note Facility 04-19-2023 Evaluation note Encounter Date Diagnosis Assessment Notes Apr, Essential hypertension (ICD-10 - I10) [facility] Other Evaluation note 10-14-2022 Note Date & Type Note Facility 10-14-2022 Evaluation note Encounter Date Diagnosis Assessment Notes Oct, Recurrent major depressive disorder, in full remission (ICD-10 - F33.42) [facility] Other Evaluation note 09-13-2022 Note Date & [...] exercise for 30 minutes, 3-5 times weekly. [employer] Other Evaluation note Note Date & Type Note Facility Evaluation note No Information [employer] Other Evaluation note Note Date & Type Note Facility Evaluation note Diagnosis Onset Date GERD (gastroesophageal reflux disease) acute History of seizure due to alcohol withdrawal acute Hypercholesterolemia acute Major depression acute Thrombocytopenia acute HTN (hypertension) chronic [facility] Work Phone: Evaluation note Note Date & Type Note Facility Evaluation note Diagnosis Onset Date Resolution Chronic venous insufficiency of lower extremity acute June 17, 024 9:10am Lymphedema due to venous disease acute June 17 024 9:10am Post-phlebitic syndrome acute N ovember 2023 9:10am Thrombocytopenia acute June 17, 2024 9:10am HTN (hypertension) chronic Novemb er 2023 9:10am [facility] Work Phone: History general Narrative - Reported [...] HERNIA PROCEDURES Hospitalization History SEE SURGICAL HX [facility] Other Summary Purpose Family History Relationship Condition [...] 2024 9:10am Lymphedema due to venous disease [facility] r 2023 9:10am Post-phlebitic syndrome June 17, 024 9:10am Thrombocytopenia June 17, 2024 9:10am HTN (hypertension) June 17, 2024 9:10am Chief Complaint Admit Date left leg draining June 17, 2024 9:10am 1 month f/u July 18, 2024 9:28am CC Adult Risk Stratification July 242023 2:47pm wellness September 11, 2024 1 0:51am Reason for Visit Admit Date Chronic venous hypertension (idiopathic) with ulcer and inflammation of lef June 17, 2024 9:10am Lymphedema due to venous disease [facility] 2023 9:10am Post-phlebitic syndrome June 17, 024 9:10am HTN (hypertension) June 17, 2024 9:10am Chronic venous hypertension (idiopathic) with ulcer and inflammation of lef July 18, 2024 9:28am Lymphedema due to venous disease [facility] r 2023 9:28am Post-phlebitic syndrome July 18 024 9:28am HTN (hypertension) July 18, 2024 9:28am Chronic venous insufficiency of lower ex tremity September 11, 2024 10:51am GERD (gastroesophageal reflux disease) F ebruary 2024 10:51am History of seizure due to alcohol withdr awal September 11, 2024 10:51am Hypercholesterolemia September 11, 2024 10:51am Major depression September 11, 2024 1 0:51am Post-phlebitic syndrome September 11 10:51am Screening PSA (prostate specific antigen ) September 11, 2024 10:51am Thrombocytopenia September 11, 2024 1 0:51am Wellness examination September 11, 2024 10:51am HTN (hypertension) September 11, 2024 1 0:51am Screening for colon cancer September 11, 2024 10:51am Additional Source Comments (unrecognized sect ion and content) No Status Records FoundNo Status Records Found INFORMATION SOURCE (unrecogn ized section and content) DATE CREATED AUTHOR 02/07/[address] [facility] DATE CREATED AUTHOR AUTHOR'S UBALDO ATION 03/08/2022 [facility] REASON FOR VISIT (unrecogniz ed section and content) prescription refillcheck upp rescription refillRefillNo Informationmedication checkWELLNESS Care Teams (unrecognized sec tion and content) Team Status: Active Member Role Status Dates Deo Reina , DO Primary Care Provider Active Team Status: Inactive Member Role Status Dates Deo Reina , DO Primary Care Provide r, Attending Provider Active Start: February 14, 2024 End: February 14, 2024 Team Status: Inactive Member Role Status Dates Deo Reina , DO Primary Care Provide r, Attending Provider Active Start: June 17, 2024 End: June 17, 2024 Team Status: Inactive Member Role Status Dates Deo Reina , DO Primary Care Provide r, Attending Provider Active Start: July 18, 2024 End: July 18, 2024 Team Status: Active Member Role Status Dates Deo Reina , DO Primary Care Provide r, Attending Provider Active Start: July 24, 2024 Team Status: Inactive Member Role Status Dates Deo Reina , DO Primary Care Provide r, Attending Provider Active Start: September 11, 2024 End: September 11, 2024 Goals (unrecognized section and content) Goals [...] BE BASED ON THE PRIMARY CLINICAL RECORDS. [employer] provides no warranty or guarantee of the accuracy or completeness of information in this document.
[2025-04-24 10:39] LABS: Hematocrit 35.0 % (42.0-54.0); Hemoglobin 11.9 g/dL (14.0-18.0); Immature Granulocytes Abs Auto 0.01 10^3/uL (0.00-0.03); Immature Granulocytes Pct Auto 0.2 % (0.0-0.5); Lymphocytes Absolute Auto 1.4 10^3/uL (1.2-3.8); Mean Corpuscular HGB Conc 34.0 g/dL (29.9-35.2); Mean Corpuscular Hemoglobin 30.4 pg (25.9-34.0); Mean Corpuscular Volume 89.3 fL (80.0-94.0); Platelet Count 141 10^3/uL (150-450); Red Blood Count 3.92 10^6/uL (4.70-6.10); White Blood Count 4.6 10^3/uL (4.0-11.0)
[2025-04-24 11:14] LABS: Alanine Aminotransferase 40 U/L (16-63); Albumin Globulin Ratio 1.1; Albumin Level 4.0 g/dL (3.4-5.0); Alkaline Phosphatase 63 U/L (46-116); Anion Gap 13.6; Aspartate Amino Transferase 28 U/L (15-37); Blood Urea Nitrogen 7.0 mg/dL (7.0-18.0); Calcium 8.8 mg/dL (8.5-10.1); Carbon Dioxide 25.4 mmol/L (21.0-32.0); Chloride 101 mmol/L (98-107); Cholesterol 250 mg/dL (<=200); Estimated GFR (African America >60 (>=60 mL/min/1.73m^2); Estimated GFR (Non-African Ame >60 (>=60 mL/min/1.73m^2); Globulin 3.7 g/dL; Glucose 118 mg/dL (74-106); HDL Cholesterol 106 mg/dL (40-60); Potassium 4.0 mmol/L (3.5-5.1); Sodium 136 mmol/L (136-145); Total Protein 7.7 g/dL (6.4-8.2); Triglycerides 57 mg/dL (<=150); VLDL CHOLESTEROL 11.4 mg/dL
== END 2025-04-24 10:10 | disposition home or self-care (01) ==
LOC: LAB 10:12
PROVIDERS: PCP Internal Medicine; Visit Provider Internal Medicine
DX: Z00.00 Encounter for general adult medical examination without abnormal findings (principal); Z12.5 Encounter for screening for malignant neoplasm of prostate
CPT/HCPCS: 36415; 80053; 80061; 85025; G0103